=== PATIENT | female | born 1990 | race Caucasian/White ===

== ENCOUNTER 2016-11-07 11:16 | Inpatient (IN) | payer BC, OTHER ==
[2016-11-07] MEDS ORDERED: Terbutaline 1 MG/ML SDV SUBCUT ONE (11:20)
[2016-11-07] MEDS ORDERED: Sodium Chloride 0.9% 2.5 ML Syringe FLUSH PRN (11:20)
[2016-11-07] MEDS ORDERED: Sodium Chloride 0.9% 10 ML Syringe FLUSH PRN (11:20)
[2016-11-07] MEDS: Lactated Ringers 1,000 ML IV SCH ×3 (11:30→12:41)
--- NOTE | 2016-11-07 12:03 | PCM.PREANE ---
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 Respiratory: Reports: no symptoms Cardiovascular: Reports: no symptoms GI: Reports: no symptoms Other: Reports: none - PHYSICAL ASSESSMENT Height: 5 ft 4 in Weight: 73.8 kg ASA Class: 2 Mental Status: alert & oriented x3 Airway Class: Mallampati = 2 Dentition: Reports: normal dentition Thyro-Mental Finger Breadths: 3 Mouth Opening Finger Breadths: 3 ROM/Head Extension: full Respiratory Status: lungs clear to auscultation bilaterally Cardiovascular Status: regular rate & rhythm, normal S1, S2, no murmur, blood pressure WNL - LAB Values: Laboratory Last Values WBC 6.59 K/uL (4.0-11.0) 11/07/16 11:35 RBC 4.04 M/uL (4.30-5.90) L 11/07/16 11:35 Hgb 12.4 g/dL (12.0-16.0) 11/07/16 11:35 Hct 38.5 % (36.0-46.0) 11/07/16 11:35 MCV 95.3 fL (80.0-98.0) 11/07/16 11:35 MCH 30.7 pg (27.0-32.0) 11/07/16 11:35 MCHC 32.2 g/dL (31.0-37.0) 11/07/16 11:35 RDW Std Deviation 48.6 fl (28.0-62.0) 11/07/16 11:35 RDW Coeff of Ceasar 14 % (11.0-15.0) 11/07/16 11:35 Plt Count 225 K/uL (150-400) 11/07/16 11:35 MPV 10.20 fL (7.40-12.00) 11/07/16 11:35 Nucleated RBC % 0.0 /100WBC 11/07/16 11:35 Nucleated RBCs # 0 K/uL 11/07/16 11:35 - ALLERGIES Allergies/Adverse Reactions: Allergies Allergy/AdvReac Type Severity Reaction Status Date / Time No Known Allergies Allergy Verified 11/15/15 16:06 - ANESTHESIA PLAN Free Text/Narrative:: Explained to pt epidural placement; she and understand and wish to proceed at this time. 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: : 3 Para: 0 LMP (Approximate): Musculoskeletal History: Reports: None Neurological History: Reports: None Psychiatric History: Reports: Anxiety Endocrine/Metabolic History: Reports: None Hematologic History: Reports: None Immunologic History: Reports: None Oncologic (Cancer) History: Reports: None Dermatologic History: Reports: None - Infectious Disease History Infectious Disease History: Reports: None - Past Surgical History GI Surgical History: Reports: Colonoscopy - SUBSTANCE USE Smoking Status *Q: Never Smoker Second Hand Smoke Exposure: No Recreational Drug Use History: No - HOME MEDS Home Medications: Home Meds buPROPion HCl [Wellbutrin Xl] 300 mg PO DAILY 11/15/15 [History] - CURRENT (IN HOUSE) MEDS Current Meds: Current Medications Lactated Ringer's (Ringers, Lactated) 1,000 mls @ 500 mls/hr IV .BOLUS NELEA Mineral Oil (Muri-Lube) 30 ml TOP DAILY NEELA Sodium Chloride (Saline Flush) 10 ml FLUSH ASDIRECTED PRN PRN Reason: Keep Vein Open Sodium Chloride (Saline Flush) 2.5 ml FLUSH ASDIRECTED PRN PRN Reason: Keep Vein Open Discontinued Medications Terbutaline Sulfate (Brethine) 0.25 mg SUBCUT ONETIME ONE Stop: 11/07/16 11:21
[2016-11-07] MEDS ORDERED: Bupivacaine 0.5% 10 ML SDV ONE ×2 (12:09→12:45)
[2016-11-07] MEDS ORDERED: fentaNYL 100 MCG/2 ML SDV ONE (12:09)
[2016-11-07] MEDS ORDERED: ePHEDrine 50 MG/ML SDV ONE (12:10)
[2016-11-07] MEDS ORDERED: Mineral Oil 10 ML Bottle TOP SCH ×3 (13:45→16:20)
--- NOTE | 2016-11-07 15:26 | OR ---
SURGEON: Cinthia Miguel M.D. DATE OF PROCEDURE: 11/07/2016 PREOPERATIVE DIAGNOSES: A 37-week intrauterine . Breech presentation. POSTOPERATIVE DIAGNOSES: A 37-week intrauterine . Breech presentation. PROCEDURE: Attempted external cephalic version. UC ARCHITECT: Jamilah Peck MD. ANESTHESIA: Epidural. FINDINGS: Prior to the attempted version, purvi breech presentation, head to maternal right. Following the version, purvi breech presentation, head to maternal left. COMPLICATIONS: None known. DISPOSITION: Stable on continuous monitoring. BRIEF HISTORY: This is a 26-year-old female, G3, P0-0-2-0. She presents at 37 weeks' gestation for external cephalic version. She has been presented with alternatives for breech presentation including a 39-week versus attempted external cephalic version understanding the success rate of 60% to 80% under epidural analgesia, potential for abruption and rupture of membranes, distress, and injury as well as maternal hypotension. Understanding all these risks, she does desire to proceed. DESCRIPTION OF PROCEDURE: Under adequate epidural analgesia, ultrasound was performed with the findings of a deepest pocket of fluid of 3.8 cm. She received terbutaline 0.25 mg subcu. The abdomen was treated with mineral oil. Using upward pressure on the breech and a forward pressure on the head, attempt was made for a forward roll. Immediately, the patient began to feel weak and dizzy. Therefore, this was discontinued and the patient was turned more on the left lateral decubitus position. She recovered quickly, heart tones remained in the 140s. Therefore, this maneuver was again attempted; however, despite adequate pressure, there was minimal change in the position. Therefore, once the fetus and mother had recovered, 3 additional attempts were made to elevate the breech and proceed with a reverse roll pushing the breech towards the maternal right and the head downward. We could accomplish oblique presentation with the head to the maternal left but could not pass beyond transverse despite adequate effort and therefore after 3 attempts in this direction, the procedure was discontinued. Prior to the procedure, heart tones were 140s with moderate variability. Following the procedure, heart tones were 150s with moderate variability. She will be continuously monitored for minimum of 1 hour and observed. If there are normal heart tones without regular contractions, she will be dismissed to home. ARMIDA / SUDHA /[id number]
--- NOTE | 2016-11-07 15:43 | HP ---
DATE OF : 1990 PRIMARY CARE PHYSICIAN: Unknown PCP CHIEF COMPLAINT: A 36-week intrauterine with breech presentation. HISTORY: This is a 26-year-old female, G3, P0-0-2-0. She presents at 37 and 5/7th weeks' gestation for external cephalic version. She has had uncomplicated care. She has a history of anxiety. She is currently on Wellbutrin and doing well. She is blood type A positive, rubella immune. She is known to be group B strep positive. Ultrasound on 10/29/2016 shows purvi breech presentation, spine to the maternal left. Estimated weight 3006 g which is the 73rd percentile. Amniotic fluid volume was normal. There is no nuchal cord identified. There is also no evidence of a uterine anomaly. She is therefore considered to be an appropriate candidate for attempted external cephalic version. This was discussed with the patient including risks which include, but is not limited to the placental abruption with distress, distress from other means onset of labor, and rupture of membranes, all of which would require urgent delivery. Very rare case reports of injury to the fetus from the external version. Alternatively, she can be scheduled at for a delivery at 39 weeks' gestation. She understand the risks of the external version. She does desire to proceed. Bedside ultrasound today confirms persistent breech presentation. PAST MEDICAL HISTORY: Significant for anxiety, irritable bowel syndrome, and fibrocystic breast changes. She has no known drug allergies. SURGICAL HISTORY: [place] [facility] teeth and colonoscopy. SOCIAL HISTORY: She is . Sexually active. She denies use of tobacco, alcohol, or street drugs. 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 CURRENT MEDICATIONS: Wellbutrin XL 300 mg daily, vitamins, hyoscyamine as needed for abdominal pain, Unisom as needed for sleep. REVIEW OF SYSTEMS: Negative besides the obstetrical related problems. PHYSICAL EXAMINATION: VITAL SIGNS: Temperature is 98.8, pulse is 107, blood pressure 113/71. heart tones 140s with moderate variability, no decelerations present, accelerations are present. There are occasional contractions which the patient is unaware of. GENERAL: She is alert and oriented. ABDOMEN: Soft, gravid, nontender. Ultrasound confirms breech presentation. EXTREMITIES: Show trace edema. GENITOURINARY: Vaginal exam; cervix is closed, thick, and the breech is at a minus 1 station. ASSESSMENT AND PLAN: A 37-week intrauterine , purvi breech presentation. Desires to proceed with external cephalic version with risks as discussed above. I reviewed the likelihood of success between 60% and 80%. This can be slightly increased with epidural analgesia. She does desire to proceed with epidural analgesia. She understands that if there is any complication at the time of version, delivery will be performed. If the version is unsuccessful, she will be scheduled for at 39 weeks' gestation. ARMIDA HALEY /[id number]
--- NOTE | 2016-11-07 16:58 | PCM48HPAN ---
Post Anesthesia Note - EVALUATION WITHIN 48HRS OF ANESTHETIC Vital Signs in Normal Range: Yes Patient Participated in Evaluation: Yes Respiratory Function Stable: Yes Airway Patent: Yes Cardiovascular Function Stable: Yes Hydration Status Stable: Yes Pain Control Satisfactory: Yes Nausea and Vomiting Control Satisfactory: Yes Mental Status Recovered: Yes - COMMENTS/OBSERVATIONS Free Text/Narrative:: Full return of sensation, pt is ambulating without difficulty.
[2016-11-08] MEDS ORDERED: Mineral Oil 10 ML Bottle TOP SCH (09:00)
== END 2016-11-07 20:40 | disposition home or self-care (01) | DRG 566 ==
LOC: MW.OB 11:16 → UNDOADMIN 11:16 → MW.OB 11:24 → UNDODISIN 18:20
PROVIDERS: ADMIT Obstetrics & Gynecology; ATTEND Obstetrics & Gynecology
PROC: 10S0XZZ Reposition Products of Conception, External Approach (ICD-10-PCS; principal; 2016-11-07)
DX: O32.1XX0 Maternal care for breech presentation, not applicable or unspecified (principal); Z3A.37 37 weeks gestation of pregnancy
CPT/HCPCS: 01958; 36415; 59025; 59412; 76815; 85027; 86850; 86900; 86901; J3010; J3105; J7120

== ENCOUNTER 2016-11-08 07:02 | Outpatient (CLI) | payer BC, OTHER ==
--- NOTE | 2016-11-10 20:27 | US ---
EXAM DATE: 11/08/16 PATIENT'S AGE: 26 Patient: ALEXIS GRAJEDA Facility: [place], [place] Site . Site : 1990 Study: US OB Pelvis [id number]/11/2017 11:31:17 AM Ordering Physician: Lamont Vicente Final Report: INDICATION: Vaginal spotting 1 day post inversion. TECHNIQUE: Limited transabdominal two-dimensional grayscale ultrasound examination. COMPARISON: None FINDINGS: There is a living fetus. The biophysical profile score is 8/8. The heart rate is measured at 141 beats per minute and the rhythm appears regular. The amniotic fluid volume is within normal limits with BEVERLEY of 14 cm. IMPRESSION: Living fetus with a biophysical profile score of 8/8. Dictated by Felipe Diaz MD @ Nov 08 2016 12:10PM (Electronic Signature) Report Signed by Proxy and Original Signed Document filed in the Medical Record. [place]
== END 2016-11-08 12:20 | disposition home or self-care (01) ==
LOC: MW.OBCHECK 07:02 → MW.OB 07:03 → MW.OBCHECK 12:20
PROVIDERS: ATTEND Obstetrics & Gynecology
DX: O47.1 False labor at or after 37 completed weeks of gestation (principal)
CPT/HCPCS: 59025; 76819; 76819-26

== ENCOUNTER 2016-11-10 14:36 | Inpatient (IN) | payer BC, OTHER ==
[2016-11-10] MEDS ORDERED: Sodium Chloride 0.9% 10 ML Syringe FLUSH PRN (14:49)
[2016-11-10] MEDS ORDERED: Sodium Chloride 0.9% 2.5 ML Syringe FLUSH PRN (14:49)
[2016-11-10] MEDS ORDERED: Citric Acid/Sodium Citrate Solution 30 ML Cup PO SCH (15:00)
[2016-11-10] MEDS: Lactated Ringers 1,000 ML IV SCH ×3 (15:10→18:37)
[2016-11-10] MEDS ORDERED: Oxytocin 10 Units/1 ML SDV ONE ×2 (15:37→16:41)
[2016-11-10] MEDS ORDERED: Morphine PF 10 MG/10 ML SDV ONE (15:37)
[2016-11-10] MEDS ORDERED: Ondansetron 4 MG/2 ML SDV ONE (15:37)
--- NOTE | 2016-11-10 15:55 | PCM.PREANE ---
Preanesthetic Assessment - ANESTHESIA/TRANSFUSION/FAMILY HX Anesthesia/Transfusion History: Prior Anesthesia Family History of Anesthesia Reaction: No - PHYSICAL ASSESSMENT Height: 5 ft 4.5 in Weight: 176 lb - LAB Values: Laboratory Last Values WBC 8.68 K/uL (4.0-11.0) 11/10/16 15:00 RBC 4.40 M/uL (4.30-5.90) 11/10/16 15:00 Hgb 13.6 g/dL (12.0-16.0) 11/10/16 15:00 Hct 41.7 % (36.0-46.0) 11/10/16 15:00 MCV 94.8 fL (80.0-98.0) 11/10/16 15:00 MCH 30.9 pg (27.0-32.0) 11/10/16 15:00 MCHC 32.6 g/dL (31.0-37.0) 11/10/16 15:00 RDW Std Deviation 48.8 fl (28.0-62.0) 11/10/16 15:00 RDW Coeff of Ceasar 14 % (11.0-15.0) 11/10/16 15:00 Plt Count 219 K/uL (150-400) 11/10/16 15:00 MPV 10.10 fL (7.40-12.00) 11/10/16 15:00 Nucleated RBC % 0.0 /100WBC 11/10/16 15:00 Nucleated RBCs # 0 K/uL 11/10/16 15:00 - ALLERGIES Allergies/Adverse Reactions: Allergies Allergy/AdvReac Type Severity Reaction Status Date / Time No Known Allergies Allergy Verified 11/15/15 16:06 PreAnesthesia Questionnaire - Past Health History Medical/Surgical History: Denies Medical/Surgical History HEENT History: Reports: None Cardiovascular History: Reports: None Respiratory History: Reports: None Gastrointestinal History: Reports: Irritable bowel syndrome Genitourinary History: Reports: None LICENSE 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: 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: Musculoskeletal History: Reports: None Neurological History: Reports: None Psychiatric History: Reports: Anxiety Endocrine/Metabolic History: Reports: None Hematologic History: Reports: None Immunologic History: Reports: None Oncologic (Cancer) History: Reports: None Dermatologic History: Reports: None - Infectious Disease History Infectious Disease History: Reports: None - Past Surgical History HEENT Surgical History: Reports: Oral surgery GI Surgical History: Reports: Colonoscopy - SUBSTANCE USE Smoking Status *Q: Never Smoker Second Hand Smoke Exposure: No Recreational Drug Use History: No - HOME MEDS Home Medications: Home Meds buPROPion HCl [Wellbutrin Xl] 300 mg PO DAILY 11/15/15 [History] - CURRENT (IN HOUSE) MEDS Current Meds: Current Medications Citric Acid/Sodium Citrate (Bicitra Solution) 30 ml PO .ONCE NEELA Lactated Ringer's (Ringers, Lactated) 1,000 mls @ 500 mls/hr IV .BOLUS NEELA Sodium Chloride (Saline Flush) 10 ml FLUSH ASDIRECTED PRN PRN Reason: Keep Vein Open Sodium Chloride (Saline Flush) 2.5 ml FLUSH ASDIRECTED PRN PRN Reason: Keep Vein Open Discontinued Medications Morphine Sulfate (Duramorph Pf) Confirm Administered Dose 10 mg .ROUTE .STK-MED ONE Stop: 11/10/16 15:38 Ondansetron HCl (Zofran) Confirm Administered Dose 4 mg .ROUTE .STK-MED ONE Stop: 11/10/16 15:38 Oxytocin (Pitocin) Confirm Administered Dose 20 unit .ROUTE .STK-MED ONE Stop: 11/10/16 15:38
[2016-11-10] MEDS ORDERED: Phenylephrine/Normal Saline 100 MCG/ML 10 ML Syringe ONE (16:12)
[2016-11-10] MEDS ORDERED: ePHEDrine 50 MG/ML SDV ONE (16:25)
[2016-11-10] MEDS ORDERED: fentaNYL 100 MCG/2 ML SDV ONE (16:48)
--- NOTE | 2016-11-10 16:55 | PCM.PREANE ---
Preanesthetic Assessment - PMH PMH: primip, breech, failed version last week, active labor, KNDA, NPO 4 hours. 1 liter fluid bolus on L&D, 2nd liter running. MP1, good cervical mobility. Plan spinal with fentanyl and duramorph. Consented, questions answered. 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 Respiratory: Reports: no symptoms Cardiovascular: Reports: no symptoms GI: Reports: no symptoms Other: Reports: none - PHYSICAL ASSESSMENT Height: 1.64 m Weight: 79.832 kg ASA Class: 2E Mental Status: alert & oriented x3 Airway Class: Mallampati = 1 Dentition: Reports: normal dentition ROM/Head Extension: full Respiratory Status: lungs clear to auscultation bilaterally Cardiovascular Status: regular rate & rhythm, normal S1, S2, no murmur - LAB Values: Laboratory Last Values WBC 8.68 K/uL (4.0-11.0) 11/10/16 15:00 RBC 4.40 M/uL (4.30-5.90) 11/10/16 15:00 Hgb 13.6 g/dL (12.0-16.0) 11/10/16 15:00 Hct 41.7 % (36.0-46.0) 11/10/16 15:00 MCV 94.8 fL (80.0-98.0) 11/10/16 15:00 MCH 30.9 pg (27.0-32.0) 11/10/16 15:00 MCHC 32.6 g/dL (31.0-37.0) 11/10/16 15:00 RDW Std Deviation 48.8 fl (28.0-62.0) 11/10/16 15:00 RDW Coeff of Ceasar 14 % (11.0-15.0) 11/10/16 15:00 Plt Count 219 K/uL (150-400) 11/10/16 15:00 MPV 10.10 fL (7.40-12.00) 11/10/16 15:00 Nucleated RBC % 0.0 /100WBC 11/10/16 15:00 Nucleated RBCs # 0 K/uL 11/10/16 15:00 Blood Type A POSITIVE 11/10/16 15:00 Antibody Screen NEGATIVE 11/10/16 15:00 - ALLERGIES Allergies/Adverse Reactions: Allergies Allergy/AdvReac Type Severity Reaction Status Date / Time No Known Allergies Allergy Verified 11/15/15 16:06 - BLOOD Blood Available: No - ANESTHESIA PLAN Preop Beta Elizabeth: No Anesthesia Type Planned: spinal - ACKNOWLEDGEMENTS Pt an appropriate candidate for the planned anesthesia: Yes Alternatives and risks of anesthesia discussed w pt/guardian: Yes Pt/Guardian understands and agree with anesthesia plan: Yes PreAnesthesia Questionnaire - Past Health History Medical/Surgical History: Denies Medical/Surgical History HEENT History: Reports: None Cardiovascular History: Reports: None Respiratory History: Reports: None Gastrointestinal History: Reports: Irritable bowel syndrome Genitourinary History: Reports: None 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: Musculoskeletal History: Reports: None Neurological History: Reports: None Psychiatric History: Reports: Anxiety Endocrine/Metabolic History: Reports: None Hematologic History: Reports: None Immunologic History: Reports: None Oncologic (Cancer) History: Reports: None Dermatologic History: Reports: None - Infectious Disease History Infectious Disease History: Reports: None - Past Surgical History HEENT Surgical History: Reports: Oral surgery GI Surgical History: Reports: Colonoscopy - SUBSTANCE USE Smoking Status *Q: Never Smoker Second Hand Smoke Exposure: No Recreational Drug Use History: No - HOME MEDS Home Medications: Home Meds buPROPion HCl [Wellbutrin Xl] 300 mg PO DAILY 11/15/15 [History] - CURRENT (IN HOUSE) MEDS Current Meds: Current Medications Citric Acid/Sodium Citrate (Bicitra Solution) 30 ml PO .ONCE NEELA Lactated Ringer's (Ringers, Lactated) 1,000 mls @ 500 mls/hr IV .BOLUS NEELA Last Admin: 11/10/16 15:50 Dose: 500 mls/hr Sodium Chloride (Saline Flush) 10 ml FLUSH ASDIRECTED PRN PRN Reason: Keep Vein Open Sodium Chloride (Saline Flush) 2.5 ml FLUSH ASDIRECTED PRN PRN Reason: Keep Vein Open Discontinued Medications Ephedrine Sulfate (Ephedrine Sulfate) Confirm Administered Dose 50 mg .ROUTE .STK-MED ONE Stop: 11/10/16 16:26 Morphine Sulfate (Duramorph Pf) Confirm Administered Dose 10 mg .ROUTE .STK-MED ONE Stop: 11/10/16 15:38 Ondansetron HCl (Zofran) Confirm Administered Dose 4 mg .ROUTE .STK-MED ONE Stop: 11/10/16 15:38 Oxytocin (Pitocin) Confirm Administered Dose 20 unit .ROUTE .STK-MED ONE Stop: 11/10/16 15:38 Oxytocin (Pitocin) Confirm Administered Dose 10 unit .ROUTE .STK-MED ONE Stop: 11/10/16 16:42 Phenylephrine HCl (Phenylephrine In Ns 100 Mcg/Ml) Confirm Administered Dose 1 mg .ROUTE .[facility]-MED ONE Stop: 11/10/16 16:13
[2016-11-10] MEDS ORDERED: Nalbuphine 10 MG/1 ML Vial IVPUSH PRN (16:56)
[2016-11-10] MEDS ORDERED: Naloxone 0.4 MG/ML Syringe IVPUSH PRN (16:56)
[2016-11-10] MEDS ORDERED: fentaNYL 100 MCG/2 ML SDV IVPUSH PRN (16:56)
[2016-11-10] MEDS ORDERED: Acetaminophen/oxyCODONE 325-5 MG Tab PO PRN (16:56)
[2016-11-10] MEDS ORDERED: Bisacodyl 10 MG Supp RECTAL PRN (17:18)
[2016-11-10] MEDS ORDERED: diphenhydrAMINE 50 MG/ML SDV IVPUSH PRN (17:18)
[2016-11-10] MEDS ORDERED: Ondansetron 4 MG/2 ML SDV IV PRN (17:18)
[2016-11-10] MEDS ORDERED: Lanolin 100% Cream 7 GM Tube TOP PRN (17:18)
[2016-11-10] MEDS: Ketorolac 30 MG/ML SDV IVPUSH SCH ×2 (17:39→23:40)
--- NOTE | 2016-11-10 18:04 | PCM.POSTAN ---
POST ANESTHESIA ASSESSMENT - MENTAL STATUS Mental Status: alert, oriented - RESPIRATORY Respiratory Status: respiratory rate WNL, airway patent, O2 saturation stable - CARDIOVASCULAR CV Status: pulse rate WNL, blood pressure stable - GASTROINTESTINAL GI Status: no symptoms - PAIN Pain Score: 0 - POST OP HYDRATION Hydration Status: adequate & stable - OBSERVATIONS Free Text/Narrative:: Pt . VSS. No apparent anesthesia complications.
--- NOTE | 2016-11-10 22:52 | OR ---
SURGEON: Sanjana Brown DATE OF PROCEDURE: 11/10/2016 BRIEF PRE-DELIVERY HISTORY: This is a 26-year-old G3, P0, presented to Labor and Delivery with complaints of regular painful uterine contractions. The patient has had complicated by a purvi breech presentation, for which patient failed version a few days earlier. When patient was examined, she was found to be 5 to 6 cm dilated, 100% effaced, and -3 station. Ultrasound was completed by myself. The vertex was noted to be in the maternal left upper quadrant. The patient was quickly consented for a primary low transverse section and was apprised of the risks of being bleeding, infection, poor wound healing, possible damage to the bowel or the bladder, ureters, blood vessels, nerves or any other adjacent structures in the pelvis, also risk of spinal anesthesia in addition to risk of thromboembolic disease. Knowing all of the above, the patient was ready to move forward with primary low transverse section. The patient was transferred to the OR and was moved to the operating room bed. Prior to placement of spinal anesthesia, Venodynes were in place and active. The patient underwent spinal anesthesia without complication and was quickly lied down. heart tones were obtained. Patient's pubic hairs were clipped and Delcid was placed. The patient was then prepped and draped in normal sterile fashion. PREOPERATIVE DIAGNOSES: 1. Intrauterine at 38 weeks and 1 day. 2. Active labor. 3. Purvi breech presentation. 4. GBS positive. POSTOPERATIVE DIAGNOSES: 1. Intrauterine at 38 weeks and 1 day. 2. Active labor. 3. Purvi breech presentation. 4. GBS positive. 5. Delivered via primary low transverse section. PROCEDURE PERFORMED: Primary low transverse section. ANESTHESIA: Spinal. ESTIMATED BLOOD LOSS: Approximately 600 mL. URINE OUTPUT: 100 mL of clear urine at the end of procedure. IV FLUIDS: 2700 mL of crystalloid. FINDINGS: Viable female infant in purvi breech presentation with score of 9 and 9 at 1 and 5 minutes respectively and weight of 3200 g. Normal intact placenta with 3-vessel cord. Normal uterus, ovaries, and tubes bilaterally. SPECIMEN REMOVED: Placenta for disposal. CONDITION: Postoperatively, the patient and tolerated the procedure well. COMPLICATIONS: None known. DESCRIPTION OF PROCEDURE: After a time-out being held in the OR to note appropriate patient, appropriate procedure, appropriate position and the fact the patient received 2 g IV Ancef prior to start of procedure. The patient was tested with Allis clamps and a spinal anesthesia was found to be adequate. A Pfannenstiel incision was made approximately 2 cm above the pubic bone for an incision approximately 8 cm. After incising the skin, the incision was carried down to the underlying layer of fascia that was incised in the midline and extended laterally with the Bovie. The superior aspect of the fascial incision was then grasped with Leidy clamps, dissected off bluntly then sharply with the Bovie. Attention then was turned to the inferior aspect of the incision which in a similar fashion was tented up, and the rectus muscles were dissected off bluntly then sharply with the Bovie. The diastasis recti was noted and the linea was grasped in the midline on either side with Jazmin clamps. Carefully incision was made in the linea with the Bovie. Once the peritoneum was noted, the index digit was used to make a defect in the peritoneum and then with lateral stretching, the peritoneal access was increased. The Michael self-retaining retractor was placed in the patient's abdomen and set. The vesicouterine peritoneum was identified, tented up, and entered sharply with the Metzenbaum scissors. The bladder flap was created digitally. A new scalpel blade was used to make a low transverse incision in the lower uterine segment. The incision was then extended in an anterior- posterior direction as to prevent excess lateral shearing out to the uterine vessels. Amniotic fluid was noted to be clear. Upon hysterotomy, the breech was located and the buttocks was brought through the hysterotomy incision. The was delivered to the chest and the arms were reduced first, the right by sweeping the arm across the chest. The vertex was then flexed and the head was brought through the hysterotomy incision. The infant was bulb suctioned at delivery. Cord was doubly clamped, infant was passed off to the waiting pediatric dietician. Cord blood was collected and sent for analysis. IV Pitocin was given as uterotonic to prevent excessive maternal blood loss. The placenta was manually removed and all clots and debris were removed from the uterus. The gutters were cleared of all clots and debris. Allis clamps were placed on either side of the hysterotomy incision and a Dyer was placed on the inferior aspect of the hysterotomy incision. 0 Vicryl suture with the CTX needle was used to close the first layer of the uterus in a running, locked fashion. The second layer of same suture was used to complete the imbricating layer. Hemostasis was noted to be excellent. The uterus, ovaries, and tubes were inspected bilaterally and noted to be normal. The Michael self-retaining retractor was removed from the patient's abdomen. The hysterotomy incision was reinspected and hemostasis was noted be excellent. The peritoneum and rectus muscles were then closed in a running mattress suture with 0 Vicryl suture. The fascia was closed with 0 Vicryl suture in a running fashion. The adipose tissue was reapproximated with 3-0 plain gut suture. The skin was reapproximated with 3-0 Prolene suture on the Archie needle. The remainder of the suture was tied and affixed to the patient's anterior abdomen. Mastisol and Steri-Strips were placed. Telfa and a pressure dressing was placed. Afterwards, the patient's uterus was expressed and patient was cleansed. Pads were changed and patient was moved to her bed. The patient went to recovery in awake and stable condition with binder in place. The patient tolerated the procedure well. Sponge, lap, needle, and instrument counts were correct on each occasion when counted. TERI / SUDHA /[id number] [place]
[2016-11-10] MEDS: Docusate Sodium 100 MG Cap PO SCH (23:40)
[2016-11-11] MEDS: Lactated Ringers 1,000 ML IV SCH (02:46)
[2016-11-11] MEDS: Ketorolac 30 MG/ML SDV IVPUSH SCH ×3 (05:30→18:10)
--- NOTE | 2016-11-11 07:34 | PCM48HPAN ---
Post Anesthesia Note - EVALUATION WITHIN 48HRS OF ANESTHETIC Vital Signs in Normal Range: Yes Patient Participated in Evaluation: Yes Respiratory Function Stable: Yes Airway Patent: Yes Cardiovascular Function Stable: Yes Hydration Status Stable: Yes Pain Control Satisfactory: Yes Nausea and Vomiting Control Satisfactory: Yes Mental Status Recovered: Yes
[2016-11-11] MEDS: Docusate Sodium 100 MG Cap PO SCH ×2 (08:01→20:58)
[2016-11-12] MEDS: Ibuprofen 800 MG Tab PO PRN ×3 (01:06→18:12)
[2016-11-12] MEDS: Acetaminophen/oxyCODONE 325-5 MG Tab PO PRN ×4 (06:40→20:15)
--- NOTE | 2016-11-12 08:04 | PCM.PNPP ---
- General Info Date of Service: 11/11/16 Functional Status: Reports: pain controlled, tolerating diet, ambulating, urinating - Review of Systems General: Reports: No Symptoms HEENT: Reports: no symptoms Pulmonary: Reports: no symptoms Cardiovascular: Reports: No Symptoms Gastrointestinal: Reports: No symptoms Genitourinary: Reports: no symptoms Musculoskeletal: Reports: no symptoms Skin: Reports: no symptoms Neurological: Reports: No Symptoms Psychiatric: Reports: no symptoms - Patient Data Vital Signs - most recent: Last Vital Signs Temp 36.7 C 11/12/16 03:00 Pulse 84 11/12/16 03:00 Resp 16 11/12/16 03:00 BP 100/63 11/12/16 03:00 Pulse Ox 95 11/12/16 03:00 Weight - most recent: 79.832 kg Med Orders - Current: Current Medications Bisacodyl (Dulcolax) 10 mg RECTAL .ONCE PRN PRN Reason: Constipation Citric Acid/Sodium Citrate (Bicitra Solution) 30 ml PO .ONCE NEELA Diphenhydramine HCl (Benadryl) 25 mg IVPUSH Q6H PRN PRN Reason: Itching or Nausea Docusate Sodium (Colace) 100 mg PO BID [facility] Last Admin: 11/11/16 20:58 Dose: 100 mg Emollient Ointment (Lansinoh Hpa) 0 gm TOP ASDIRECTED PRN PRN Reason: Sore Nipples Last Admin: 11/11/16 12:32 Dose: 0.25 oz Lactated Ringer's (Ringers, Lactated) 1,000 mls @ 500 mls/hr IV .BOLUS [facility] Last Admin: 11/10/16 15:50 Dose: 500 mls/hr Lactated Ringer's (Ringers, Lactated) 1,000 mls @ 125 mls/hr IV ASDIRECTED [facility] Last Admin: 11/11/16 02:46 Dose: 125 mls/hr Ibuprofen (Motrin) 800 mg PO Q8H PRN PRN Reason: mild pain or fever Last Admin: 11/12/16 01:06 Dose: 800 mg Ondansetron HCl (Zofran) 4 mg IV Q4H PRN PRN Reason: Nausea/Vomiting Oxycodone/Acetaminophen (Percocet 325-5 Mg) 2 tab PO ONETIME PRN PRN Reason: Pain (moderate 4-6) Oxycodone/Acetaminophen (Percocet 325-5 Mg) 1 tab PO Q4H PRN PRN Reason: Pain (moderate 4-6) Last Admin: 11/12/16 06:40 Dose: 1 tab Oxycodone/Acetaminophen (Percocet 325-5 Mg) 2 tab PO Q4H PRN PRN Reason: Pain (moderate 4-6) Sodium Chloride (Saline Flush) 10 ml FLUSH ASDIRECTED PRN PRN Reason: Keep Vein Open Sodium Chloride (Saline Flush) 2.5 ml FLUSH ASDIRECTED PRN PRN Reason: Keep Vein Open Discontinued Medications Ephedrine Sulfate (Ephedrine Sulfate) Confirm Administered Dose 50 mg .ROUTE .STK-MED ONE Stop: 11/10/16 16:26 Fentanyl (Sublimaze) Confirm Administered Dose 100 mcg .ROUTE .STK-MED ONE Stop: 11/10/16 16:49 Fentanyl (Sublimaze) 50 mcg IVPUSH Q5M PRN PRN Reason: Pain (severe 7-10) Stop: 11/11/16 16:56 Ketorolac Tromethamine (Toradol) 30 mg IVPUSH Q6H NEELA Stop: 11/11/16 17:31 Last Admin: 11/11/16 18:10 Dose: 30 mg Morphine Sulfate (Duramorph Pf) Confirm Administered Dose 10 mg .ROUTE .STK-MED ONE Stop: 11/10/16 15:38 Nalbuphine HCl (Nubain) 5 mg IVPUSH Q3H PRN PRN Reason: Pruritis Stop: 11/11/16 16:58 Naloxone HCl (Narcan) 0.1 mg IVPUSH ONETIME PRN PRN Reason: Oversedation Stop: 11/11/16 16:58 Ondansetron HCl (Zofran) Confirm Administered Dose 4 mg .ROUTE .STK-MED ONE Stop: 11/10/16 15:38 Oxytocin (Pitocin) Confirm Administered Dose 20 unit .ROUTE .STK-MED ONE Stop: 11/10/16 15:38 Oxytocin (Pitocin) Confirm Administered Dose 10 unit .ROUTE .STK-MED ONE Stop: 11/10/16 16:42 Phenylephrine HCl (Phenylephrine In Ns 100 Mcg/Ml) Confirm Administered Dose 1 mg .ROUTE .STK-MED ONE Stop: 11/10/16 16:13 - Interaction Disposition, : [place] in Room with Family Infant Interaction: Holding Infant Feeding: Breastfed Infant; Nursed Well Support Person: - Recovery Exam Fundal Tone: Firm Fundal Level: At Umbilicus Fundal Placement: Midline Lochia Amount: Scant Lochia Color: Brownish Perineum Description: Intact, Minimal Bruising/Swelling Episiotomy/Laceration: None Bladder Status: Nonpalpable, Voiding Urinary Elimination: Voided - Exam General: alert, oriented HEENT: Pupils equal Neck: supple Lungs: Normal respiratory effort Abdomen: bowel sounds present, soft, no tenderness, no distension Extremities: no edema Skin: warm, dry, intact Wound/Incisions: dressing dry and intact Neurological: no new focal deficit Psy/Mental Status: alert, normal affect, normal mood - Problem List & Annotations (1) Breech, purvi SNOMED Code(s): 66806218 Code(s): O32.1XX0 - MATERNAL CARE FOR BREECH PRESENTATION, UNSP Status: Acute Current Visit: Yes (2) delivery delivered SNOMED Code(s): 430807860 Code(s): O82 - ENCOUNTER FOR DELIVERY WITHOUT INDICATION Status: Acute Current Visit: Yes - Problem List Review Problem List Initiated/Reviewed/Updated: Yes - Assessment Assessment:: POD1 after primary for breech presentation, pain well controlled. Minimal lochia. Baby has latched well. - Plan Plan:: Continue postop care, continue support.
--- NOTE | 2016-11-12 08:19 | PCM.PNPP ---
- General Info Date of Service: 11/12/16 Functional Status: Reports: pain controlled, tolerating diet, ambulating, urinating - Review of Systems General: Reports: No Symptoms HEENT: Reports: no symptoms Pulmonary: Reports: no symptoms Cardiovascular: Reports: No Symptoms Gastrointestinal: Reports: No symptoms Genitourinary: Reports: no symptoms Musculoskeletal: Reports: no symptoms Skin: Reports: no symptoms Neurological: Reports: No Symptoms Psychiatric: Reports: no symptoms - Patient Data Vital Signs - most recent: Last Vital Signs Temp 36.7 C 11/12/16 03:00 Pulse 84 11/12/16 03:00 Resp 16 11/12/16 03:00 BP 100/63 11/12/16 03:00 Pulse Ox 95 11/12/16 03:00 Weight - most recent: 79.832 kg Med Orders - Current: Current Medications Bisacodyl (Dulcolax) 10 mg RECTAL .ONCE PRN PRN Reason: Constipation Citric Acid/Sodium Citrate (Bicitra Solution) 30 ml PO .ONCE NEELA Diphenhydramine HCl (Benadryl) 25 mg IVPUSH Q6H PRN PRN Reason: Itching or Nausea Docusate Sodium (Colace) 100 mg PO BID [facility] Last Admin: 11/11/16 20:58 Dose: 100 mg Emollient Ointment (Lansinoh Hpa) 0 gm TOP ASDIRECTED PRN PRN Reason: Sore Nipples Last Admin: 11/11/16 12:32 Dose: 0.25 oz Lactated Ringer's (Ringers, Lactated) 1,000 mls @ 500 mls/hr IV .BOLUS [facility] Last Admin: 11/10/16 15:50 Dose: 500 mls/hr Lactated Ringer's (Ringers, Lactated) 1,000 mls @ 125 mls/hr IV ASDIRECTED [facility] Last Admin: 11/11/16 02:46 Dose: 125 mls/hr Ibuprofen (Motrin) 800 mg PO Q8H PRN PRN Reason: mild pain or fever Last Admin: 11/12/16 01:06 Dose: 800 mg Ondansetron HCl (Zofran) 4 mg IV Q4H PRN PRN Reason: Nausea/Vomiting Oxycodone/Acetaminophen (Percocet 325-5 Mg) 2 tab PO ONETIME PRN PRN Reason: Pain (moderate 4-6) Oxycodone/Acetaminophen (Percocet 325-5 Mg) 1 tab PO Q4H PRN PRN Reason: Pain (moderate 4-6) Last Admin: 11/12/16 06:40 Dose: 1 tab Oxycodone/Acetaminophen (Percocet 325-5 Mg) 2 tab PO Q4H PRN PRN Reason: Pain (moderate 4-6) Sodium Chloride (Saline Flush) 10 ml FLUSH ASDIRECTED PRN PRN Reason: Keep Vein Open Sodium Chloride (Saline Flush) 2.5 ml FLUSH ASDIRECTED PRN PRN Reason: Keep Vein Open Discontinued Medications Ephedrine Sulfate (Ephedrine Sulfate) Confirm Administered Dose 50 mg .ROUTE .STK-MED ONE Stop: 11/10/16 16:26 Fentanyl (Sublimaze) Confirm Administered Dose 100 mcg .ROUTE .STK-MED ONE Stop: 11/10/16 16:49 Fentanyl (Sublimaze) 50 mcg IVPUSH Q5M PRN PRN Reason: Pain (severe 7-10) Stop: 11/11/16 16:56 Ketorolac Tromethamine (Toradol) 30 mg IVPUSH Q6H NEELA Stop: 11/11/16 17:31 Last Admin: 11/11/16 18:10 Dose: 30 mg Morphine Sulfate (Duramorph Pf) Confirm Administered Dose 10 mg .ROUTE .STK-MED ONE Stop: 11/10/16 15:38 Nalbuphine HCl (Nubain) 5 mg IVPUSH Q3H PRN PRN Reason: Pruritis Stop: 11/11/16 16:58 Naloxone HCl (Narcan) 0.1 mg IVPUSH ONETIME PRN PRN Reason: Oversedation Stop: 11/11/16 16:58 Ondansetron HCl (Zofran) Confirm Administered Dose 4 mg .ROUTE .STK-MED ONE Stop: 11/10/16 15:38 Oxytocin (Pitocin) Confirm Administered Dose 20 unit .ROUTE .STK-MED ONE Stop: 11/10/16 15:38 Oxytocin (Pitocin) Confirm Administered Dose 10 unit .ROUTE .STK-MED ONE Stop: 11/10/16 16:42 Phenylephrine HCl (Phenylephrine In Ns 100 Mcg/Ml) Confirm Administered Dose 1 mg .ROUTE .STK-MED ONE Stop: 11/10/16 16:13 - Interaction Disposition, : [place] in Room with Family Infant Interaction: Holding Infant Feeding: Breastfed Infant; Nursed Well Support Person: - Recovery Exam Fundal Tone: Firm Fundal Level: At Umbilicus Fundal Placement: Midline Lochia Amount: Scant Lochia Color: Brownish Perineum Description: Intact, Minimal Bruising/Swelling Episiotomy/Laceration: None Bladder Status: Nonpalpable, Voiding Urinary Elimination: Voided - Exam General: alert, oriented HEENT: Pupils equal Neck: supple Lungs: Clear to auscultation, Normal respiratory effort Cardiovascular: Regular Rate, Regular Rhythm Abdomen: bowel sounds present, soft, no tenderness, no distension Extremities: no edema Skin: warm, dry, intact Wound/Incisions: healing well Neurological: no new focal deficit Psy/Mental Status: alert, normal affect, normal mood - Problem List & Annotations (1) Breech, purvi SNOMED Code(s): 41162664 Code(s): O32.1XX0 - MATERNAL CARE FOR BREECH PRESENTATION, UNSP Status: Acute Current Visit: Yes (2) delivery delivered SNOMED Code(s): 033259099 Code(s): O82 - ENCOUNTER FOR DELIVERY WITHOUT INDICATION Status: Acute Current Visit: Yes - Problem List Review Problem List Initiated/Reviewed/Updated: Yes - Assessment Assessment:: POD2 after primary for breech presentation, pain well controlled. Working on , no complaints, would like to be discharged later today. - Plan Plan:: Dismiss to home later today. Discharge instructions reviewed.
[2016-11-12] MEDS: Docusate Sodium 100 MG Cap PO SCH ×2 (09:09→20:16)
[2016-11-13] MEDS: Acetaminophen/oxyCODONE 325-5 MG Tab PO PRN ×3 (00:21→09:17)
[2016-11-13] MEDS: Ibuprofen 800 MG Tab PO PRN (04:28)
[2016-11-13] MEDS: Docusate Sodium 100 MG Cap PO SCH (09:17)
--- NOTE | 2016-11-13 09:47 | PCM.PNPP ---
- General Info Functional Status: Reports: pain controlled, tolerating diet, ambulating, urinating - Review of Systems General: Reports: No Symptoms HEENT: Reports: no symptoms Pulmonary: Reports: no symptoms Cardiovascular: Reports: No Symptoms Gastrointestinal: Reports: No symptoms Genitourinary: Reports: no symptoms Musculoskeletal: Reports: no symptoms Skin: Reports: no symptoms Neurological: Reports: No Symptoms Psychiatric: Reports: no symptoms - Patient Data Vital Signs - most recent: Last Vital Signs Temp 37.1 C 11/13/16 03:52 Pulse 78 11/13/16 03:52 Resp 14 11/13/16 03:52 BP 101/65 11/13/16 03:52 Pulse Ox 97 11/13/16 03:52 Weight - most recent: 79.832 kg Med Orders - Current: Current Medications Bisacodyl (Dulcolax) 10 mg RECTAL .ONCE PRN PRN Reason: Constipation Citric Acid/Sodium Citrate (Bicitra Solution) 30 ml PO .ONCE NEELA Diphenhydramine HCl (Benadryl) 25 mg IVPUSH Q6H PRN PRN Reason: Itching or Nausea Docusate Sodium (Colace) 100 mg PO BID [facility] Last Admin: 11/13/16 09:17 Dose: 100 mg Emollient Ointment (Lansinoh Hpa) 0 gm TOP ASDIRECTED PRN PRN Reason: Sore Nipples Last Admin: 11/11/16 12:32 Dose: 0.25 oz Lactated Ringer's (Ringers, Lactated) 1,000 mls @ 500 mls/hr IV .BOLUS [facility] Last Admin: 11/10/16 15:50 Dose: 500 mls/hr Lactated Ringer's (Ringers, Lactated) 1,000 mls @ 125 mls/hr IV ASDIRECTED [facility] Last Admin: 11/11/16 02:46 Dose: 125 mls/hr Ibuprofen (Motrin) 800 mg PO Q8H PRN PRN Reason: mild pain or fever Last Admin: 11/13/16 04:28 Dose: 800 mg Ondansetron HCl (Zofran) 4 mg IV Q4H PRN PRN Reason: Nausea/Vomiting Oxycodone/Acetaminophen (Percocet 325-5 Mg) 2 tab PO ONETIME PRN PRN Reason: Pain (moderate 4-6) Oxycodone/Acetaminophen (Percocet 325-5 Mg) 1 tab PO Q4H PRN PRN Reason: Pain (moderate 4-6) Last Admin: 11/13/16 09:17 Dose: 1 tab Oxycodone/Acetaminophen (Percocet 325-5 Mg) 2 tab PO Q4H PRN PRN Reason: Pain (moderate 4-6) Last Admin: 11/12/16 15:20 Dose: 2 tab Sodium Chloride (Saline Flush) 10 ml FLUSH ASDIRECTED PRN PRN Reason: Keep Vein Open Sodium Chloride (Saline Flush) 2.5 ml FLUSH ASDIRECTED PRN PRN Reason: Keep Vein Open Discontinued Medications Ephedrine Sulfate (Ephedrine Sulfate) Confirm Administered Dose 50 mg .ROUTE .STK-MED ONE Stop: 11/10/16 16:26 Fentanyl (Sublimaze) Confirm Administered Dose 100 mcg .ROUTE .STK-MED ONE Stop: 11/10/16 16:49 Fentanyl (Sublimaze) 50 mcg IVPUSH Q5M PRN PRN Reason: Pain (severe 7-10) Stop: 11/11/16 16:56 Ketorolac Tromethamine (Toradol) 30 mg IVPUSH Q6H NEELA Stop: 11/11/16 17:31 Last Admin: 11/11/16 18:10 Dose: 30 mg Morphine Sulfate (Duramorph Pf) Confirm Administered Dose 10 mg .ROUTE .STK-MED ONE Stop: 11/10/16 15:38 Nalbuphine HCl (Nubain) 5 mg IVPUSH Q3H PRN PRN Reason: Pruritis Stop: 11/11/16 16:58 Naloxone HCl (Narcan) 0.1 mg IVPUSH ONETIME PRN PRN Reason: Oversedation Stop: 11/11/16 16:58 Ondansetron HCl (Zofran) Confirm Administered Dose 4 mg .ROUTE .STK-MED ONE Stop: 11/10/16 15:38 Oxytocin (Pitocin) Confirm Administered Dose 20 unit .ROUTE .STK-MED ONE Stop: 11/10/16 15:38 Oxytocin (Pitocin) Confirm Administered Dose 10 unit .ROUTE .STK-MED ONE Stop: 11/10/16 16:42 Phenylephrine HCl (Phenylephrine In Ns 100 Mcg/Ml) Confirm Administered Dose 1 mg .ROUTE .STK-MED ONE Stop: 11/10/16 16:13 - Interaction Disposition, : [place] at Bedside Infant Interaction: Holding Infant Feeding: Breastfed ; Nursed Well Support Person: - Recovery Exam Fundal Tone: Firm Fundal Level: At Umbilicus Fundal Placement: Midline Lochia Amount: Scant Lochia Color: Rubra/Red Perineum Description: Intact, Minimal Bruising/Swelling Episiotomy/Laceration: None Bladder Status: Voiding Urinary Elimination: Voided - Exam General: alert, oriented HEENT: Pupils equal Neck: supple Lungs: Normal respiratory effort Abdomen: soft, no tenderness, no distension Extremities: No: no edema (1+ bilaterally) Skin: warm, dry, intact Wound/Incisions: healing well Neurological: no new focal deficit Psy/Mental Status: alert, normal affect, normal mood - Problem List & Annotations (1) Breech, purvi SNOMED Code(s): 29947045 Code(s): O32.1XX0 - MATERNAL CARE FOR BREECH PRESENTATION, UNSP Status: Acute Current Visit: Yes (2) delivery delivered SNOMED Code(s): 581742142 Code(s): O82 - ENCOUNTER FOR DELIVERY WITHOUT INDICATION Status: Acute Current Visit: Yes - Problem List Review Problem List Initiated/Reviewed/Updated: Yes - My Orders Last 24 Hours: My Active Orders 11/13/16 09:45 Ready for Discharge [RC] PER UNIT ROUTINE - Assessment Assessment:: POD3 after primary for breech presentation, pain well controlled.No complaints, ready to be discharged later today. - Plan Plan:: Dismiss to home Discharge instructions reviewed.
[2016-11-13 14:17] VITALS: BP 105/64
== END 2016-11-13 12:15 | disposition home or self-care (01) | DRG 540 ==
LOC: MW.OBCHECK 14:36 → MW.OB 14:36 → MW.OBCHECK 14:40 → MW.OB 14:50 → OBSVTOIN 16:26 → MW.OB 21:04
PROVIDERS: ADMIT Obstetrics & Gynecology; ATTEND Obstetrics & Gynecology
PROC: 10D00Z1 Extraction of Products of Conception, Low, Open Approach (ICD-10-PCS; principal; 2016-11-10)
DX: O32.1XX0 Maternal care for breech presentation, not applicable or unspecified (principal); Z3A.38 38 weeks gestation of pregnancy; Z37.0 Single live birth; Z22.330 Carrier of Group B streptococcus
CPT/HCPCS: 01961; 36415; 51703; 59025; 85014; 85018; 85027; 86850; 86900; 86901; A9270-GY; J1885; J2270; J2405; J2590; J3010; J7120

== ENCOUNTER 2016-12-12 10:06 | Emergency (ER) | payer BC, OTHER ==
[2016-12-12] MEDS ORDERED: Sodium Chloride 0.9% 1,000 ML IV ONE (10:19)
[2016-12-12] MEDS ORDERED: Sodium Chloride 0.9% 2.5 ML Syringe FLUSH PRN (10:19)
[2016-12-12] MEDS ORDERED: Ketorolac 30 MG/ML SDV IVPUSH ONE (10:19)
[2016-12-12] MEDS ORDERED: Sodium Chloride 0.9% 10 ML Syringe FLUSH PRN (10:19)
--- NOTE | 2016-12-12 10:31 | EDM.PDOC ---
ED HISTORY OF PRESENT ILLNESS - General Chief Complaint: Chest Pain Stated Complaint: CHEST PAIN Time Seen by Provider: 12/12/16 10:18 Source of Information: Reports: Patient History Limitations: Reports: No limitations - History of Present Illness INITIAL COMMENTS - FREE TEXT/NARRATIVE: History of present illness: [] Patient is one month and last night developed sharp left-sided chest pain that is worse with breathing. She denies any fevers, chills, cough or abdominal pain. He has felt mildly lightheaded and states her chest pain radiates to the right posterior side of her neck, pain does not increase with movement of her neck or arms. She denies any trauma. Review of systems: As per history of present illness and below otherwise all systems reviewed and negative. Past medical history: As per history of present illness and as reviewed below otherwise noncontributory. Surgical history: As per history of present illness and as reviewed below otherwise noncontributory. Social history: No reported history of drug or alcohol abuse. Family history: As per history of present illness and as reviewed below otherwise noncontributory. Physical exam: General: Well developed, well nourished in NAD HEENT: Atraumatic, normocephalic, pupils reactive, negative for conjunctival pallor or scleral icterus, mucous membranes moist, throat clear, neck supple, nontender, trachea midline. Lungs: Clear to auscultation, breath sounds equal bilaterally, chest nontender. Heart: S1S2, regular, negative for clicks, rubs, or JVD. Abdomen: Soft, nondistended, nontender. Negative for masses or hepatosplenomegaly. Negative for costovertebral tenderness. Pelvis: Stable nontender. Genitourinary: Deferred. Rectal: Deferred. Extremities: Atraumatic, negative for cords or calf pain. Neurovascular unremarkable. Neuro: Awake, alert, oriented. Cranial nerves II through XII unremarkable. Cerebellum unremarkable. Motor and sensory unremarkable throughout. Exam nonfocal. Diagnostics: [] Therapeutics: [] Impression: [] Plan: [] Definitive disposition and diagnosis as appropriate pending reevaluation and review of above. - Related Data Allergies/ADRs: Allergies Allergy/AdvReac Type Severity Reaction Status Date / Time No Known Allergies Allergy Verified 11/15/15 16:06 Home Meds: Home Meds buPROPion HCl [Wellbutrin Xl] 300 mg PO DAILY 11/15/15 [History] Enoxaparin Sodium [Lovenox] 68 mg SQ BID #10 ml 12/12/16 [Rx] Gentian Anabel 59 ml TP DAILY 12/12/16 [History] Warfarin [Coumadin] 5 mg PO DAILY #20 tablet 12/12/16 [Rx] Past Medical History - Past Health History Medical/Surgical History: Denies Medical/Surgical History HEENT History: Reports: None Cardiovascular History: Reports: None Respiratory History: Reports: None Gastrointestinal History: Reports: Irritable bowel syndrome Genitourinary History: Reports: None [employer] History: Reports: Musculoskeletal History: Reports: None Neurological History: Reports: None Psychiatric History: Reports: Anxiety Endocrine/Metabolic History: Reports: None Hematologic History: Reports: None Immunologic History: Reports: None Oncologic (Cancer) History: Reports: None Dermatologic History: Reports: None - Infectious Disease History Infectious Disease History: Reports: None - Past Surgical History HEENT Surgical History: Reports: Oral surgery GI Surgical History: Reports: Colonoscopy Social & Family History - Family History Family Medical History: Noncontributory Cardiac: Reports: Heart failure, Hypertension, [place] Neurological: Reports: Dementia Oncologic: Reports: Colon, Esophageal - Tobacco Use Smoking Status *Q: Never Smoker Second Hand Smoke Exposure: No - Caffeine Use Caffeine Use: Reports: None - Recreational Drug Use Recreational Drug Use: No ED ROS GENERAL - Review of Systems Review Of Systems: See Below (See history of present illness) ED EXAM, GENERAL - Physical Exam Exam: See Below (See history of present illness) Course - Vital Signs Last Recorded V/S: Last Vital Signs Temp 36.8 C 12/12/16 10:17 Pulse 89 12/12/16 11:59 Resp 16 12/12/16 11:59 BP 92/62 12/12/16 11:59 Pulse Ox 96 12/12/16 11:59 - Orders/Labs/Meds Orders: Active Orders 24 hr Category Date Time Status EKG Documentation Completion [RC] STAT Care 12/12/16 10:29 Active Sodium Chloride 0.9% [Saline Flush] Med 12/12/16 10:19 Active 10 ml FLUSH ASDIRECTED PRN Sodium Chloride 0.9% [Saline Flush] Med 12/12/16 10:19 Active 2.5 ml FLUSH ASDIRECTED PRN Peripheral IV Insertion Adult [OM.PC] Stat Oth 12/12/16 10:18 Ordered Medication Orders Sodium Chloride (Saline Flush) 10 ml FLUSH ASDIRECTED PRN PRN Reason: Keep Vein Open Last Admin: 12/12/16 10:56 Dose: 10 ml Sodium Chloride (Saline Flush) 2.5 ml FLUSH ASDIRECTED PRN PRN Reason: Keep Vein Open Last Admin: 12/12/16 10:56 Dose: 2.5 ml Labs: Laboratory Tests 12/12/16 12/12/16 12/12/16 Range/Units 10:37 10:37 10:37 WBC 7.32 (4.0-11.0) K/uL RBC 4.45 (4.30-5.90) M/uL Hgb 13.6 (12.0-16.0) g/dL Hct 42.2 (36.0-46.0) % MCV 94.8 (80.0-98.0) fL MCH 30.6 (27.0-32.0) pg MCHC 32.2 (31.0-37.0) g/dL RDW Std Deviation 45.2 (28.0-62.0) fl RDW Coeff of Ceasar 13 (11.0-15.0) % Plt Count 301 (150-400) K/uL MPV 9.50 (7.40-12.00) fL Neut % (Auto) 66.5 (48.0-80.0) % Lymph % (Auto) 23.4 (16.0-40.0) % [place] % (Auto) 8.1 (0.0-15.0) % Eos % (Auto) 1.5 (0.0-7.0) % Baso % (Auto) 0.5 (0.0-1.5) % Neut # (Auto) 4.9 (1.4-5.7) K/uL Lymph # (Auto) 1.7 (0.6-2.4) K/uL [place] # (Auto) 0.6 (0.0-0.8) K/uL Eos # (Auto) 0.1 (0.0-0.7) K/uL Baso # (Auto) 0.0 (0.0-0.1) K/uL Nucleated RBC % 0.0 /100WBC Nucleated RBCs # 0 K/uL INR 1.01 (0.86-1.11) APTT (18.6-31.3) SEC Sodium 140 (136-146) mmol/L Potassium 4.2 (3.5-5.1) mmol/L Chloride 108 (98-110) mmol/L Carbon Dioxide 25 (21-31) mmol/L BUN 13 (6.0-23.0) mg/dL Creatinine 0.9 (0.6-1.5) mg/dL Est Cr Clr Drug Dosing 80.36 mL/min Estimated GFR (MDRD) > 60.0 ml/min Glucose 83 (60-110) mg/dL Calcium 9.1 (8.8-10.8) mg/dL Total Bilirubin 0.4 (0.1-1.5) mg/dL AST 16 (5-40) IU/L ALT 17 (8-54) IU/L Alkaline Phosphatase 79 (40-150) Total Protein 6.5 (6.0-8.0) g/dL Albumin 3.8 (3.5-5.0) g/dL Globulin 2.7 (2.0-3.5) g/dL Albumin/Globulin Ratio 1.4 (1.3-2.8) 12/12/16 Range/Units 10:37 WBC (4.0-11.0) K/uL RBC (4.30-5.90) M/uL Hgb (12.0-16.0) g/dL Hct (36.0-46.0) % MCV (80.0-98.0) fL MCH (27.0-32.0) pg MCHC (31.0-37.0) g/dL RDW Std Deviation (28.0-62.0) fl RDW Coeff of Ceasar (11.0-15.0) % Plt Count (150-400) K/uL MPV (7.40-12.00) fL Neut % (Auto) (48.0-80.0) % Lymph % (Auto) (16.0-40.0) % [place] % (Auto) (0.0-15.0) % Eos % (Auto) (0.0-7.0) % Baso % (Auto) (0.0-1.5) % Neut # (Auto) (1.4-5.7) K/uL Lymph # (Auto) (0.6-2.4) K/uL [place] # (Auto) (0.0-0.8) K/uL Eos # (Auto) (0.0-0.7) K/uL Baso # (Auto) (0.0-0.1) K/uL Nucleated RBC % /100WBC Nucleated RBCs # K/uL INR (0.86-1.11) APTT 32.7 H (18.6-31.3) SEC Sodium (136-146) mmol/L Potassium (3.5-5.1) mmol/L Chloride (98-110) mmol/L Carbon Dioxide (21-31) mmol/L BUN (6.0-23.0) mg/dL Creatinine (0.6-1.5) mg/dL Est Cr Clr Drug Dosing mL/min Estimated GFR (MDRD) ml/min Glucose (60-110) mg/dL Calcium (8.8-10.8) mg/dL Total Bilirubin (0.1-1.5) mg/dL AST (5-40) IU/L ALT (8-54) IU/L Alkaline Phosphatase (40-150) Total Protein (6.0-8.0) g/dL Albumin (3.5-5.0) g/dL Globulin (2.0-3.5) g/dL Albumin/Globulin Ratio (1.3-2.8) Meds: Medications Generic Name Dose Route Start Last Admin Trade Name Freq PRN Reason Stop Dose Admin Sodium Chloride 10 ml 12/12/16 10:19 12/12/16 10:56 Saline Flush FLUSH 10 ml ASDIRECTED PRN Administration Keep Vein Open Sodium Chloride 2.5 ml 12/12/16 10:19 12/12/16 10:56 Saline Flush FLUSH 2.5 ml ASDIRECTED PRN Administration Keep Vein Open Discontinued Medications Generic Name Dose Route Start Last Admin Trade Name Freq PRN Reason Stop Dose Admin Sodium Chloride 1,000 mls @ 999 mls/hr 12/12/16 10:19 12/12/16 10:50 Normal Saline IV 12/12/16 11:19 999 mls/hr .Bolus ONE Administration Iopamidol 50 ml 12/12/16 11:54 12/12/16 11:55 Isovue Multipack-370 (76%) IVPUSH 12/12/16 11:55 50 ml ONETIME STA Administration Ketorolac Tromethamine 30 mg 12/12/16 10:19 12/12/16 10:54 Toradol IVPUSH 12/12/16 10:20 30 mg ONETIME ONE Administration Departure - Departure Time of Disposition: 13:16 Disposition: Home, Self-Care 01 Condition: good Clinical Impression: Pulmonary embolism Qualifiers: Pulmonary embolism type: other Chronicity: acute Acute cor pulmonale presence: without acute cor pulmonale Qualified Code(s): I26.99 - Other pulmonary embolism without acute cor pulmonale Prescriptions: Enoxaparin Sodium [Lovenox] 68 mg SQ BID #10 ml Warfarin [Coumadin] 5 mg PO DAILY #20 tablet Forms: ED Department Discharge Additional Instructions: The following information is given to patients seen in the emergency department who are being discharged to home. This information is to outline your options for follow-up care. We provide all patients seen in our emergency department with a follow-up referral. The need for follow-up, as well as the timing and circumstances, are variable depending upon the specifics of your emergency department visit. If you don't have a primary care physician on staff, we will provide you with a referral. We always advise you to contact your personal physician following an emergency department visit to inform them of the circumstance of the visit and for follow-up with them and/or the need for any referrals to a consulting specialist. The emergency department will also refer you to a specialist when appropriate. This referral assures that you have the opportunity for follow-up care with a specialist. All of these measure are taken in an effort to provide you with optimal care, which includes your follow-up. Under all circumstances we always encourage you to contact your private physician who remains a resource for coordinating your care. When calling for follow-up care, please make the office aware that this follow-up is from your recent emergency room visit. If for any reason you are refused follow-up, please contact the [facility] Emergency Department at and asked to speak to the emergency department charge nurse. Use Lovenox as directed and start Coumadin Follow up with your doctor on Thursday [facility] [address] [place] [id number] - My Orders Last 24 Hours: My Active Orders 12/12/16 10:18 Peripheral IV Insertion Adult [OM.PC] Stat 12/12/16 10:19 Sodium Chloride 0.9% [Saline Flush] 10 ml FLUSH ASDIRECTED PRN Sodium Chloride 0.9% [Saline Flush] 2.5 ml FLUSH ASDIRECTED PRN 12/12/16 10:29 EKG Documentation Completion [RC] STAT - Assessment/Plan Last 24 Hours: My Active Orders 12/12/16 10:18 Peripheral IV Insertion Adult [OM.PC] Stat 12/12/16 10:19 Sodium Chloride 0.9% [Saline Flush] 10 ml FLUSH ASDIRECTED PRN Sodium Chloride 0.9% [Saline Flush] 2.5 ml FLUSH ASDIRECTED PRN 12/12/16 10:29 EKG Documentation Completion [RC] STAT
[2016-12-12 11:19] LABS: CHLORIDE,CL 108 mmol/L (98-110); SODIUM,NA 140 mmol/L (136-146)
[2016-12-12] MEDS ORDERED: Iopamidol 755 MG/ML 500 ML Multipack Bottle IVPUSH STA (11:54)
--- NOTE | 2016-12-12 12:50 | CT ---
EXAMINATION: CTA chest HISTORY: Right lower chest pain, COMPARISON: None TECHNIQUE: Axial CT images obtained through the chest following the administration of 50 mL of Isovu e-370 the right antecubital fossa. Coronal and sagittal reconstructions obtained. FINDINGS: The lungs are clear without focal consolidation. There is a trace left pleural effusion. T here is mild dependent atelectasis. The heart is normal in size without a pericardial effusion. The thoracic aorta is normal in caliber. There is a filling defect within several segments of the left l ower lobe, however these appear peripheral with contrast noted distally within the involved pulmonar y arteries. Otherwise the remaining pulmonary arteries appear patent. No mediastinal or hilar lympha denopathy. No axillary lymphadenopathy. The visualized images of the upper abdomen appear grossly unremarkable. No suspicious osseous abnormalities are noted. IMPRESSION: 1. Peripheral filling defects within several segmental pulmonary arteries within the left lower lobe . These have the appearance of chronic pulmonary emboli, however there is a trace left pleural effus ion. Correlate with history of previous PE. 2. Otherwise no acute cardiopulmonary findings.
[2016-12-12] MEDS ORDERED: Enoxaparin 60 MG/0.6 ML Syringe SUBCUT ONE (13:30)
[2016-12-12 13:52] VITALS: BP 98/65
== END 2016-12-12 13:48 | disposition home or self-care (01) ==
LOC: MW.ED 10:06
DX: I26.99 Other pulmonary embolism without acute cor pulmonale (principal); F41.9 Anxiety disorder, unspecified; Z98.890 Other specified postprocedural states; Z79.01 Long term (current) use of anticoagulants; Z79.899 Other long term (current) drug therapy
CPT/HCPCS: 71275; 80053; 85025; 85610; 85730; 93005; 96361; 96372; 96374; 99285; J1650; J1885; J7040; Q9967; 99284

== ENCOUNTER 2016-12-13 00:42 | Emergency (ER) | payer BC, OTHER ==
--- NOTE | 2016-12-13 01:37 | EDM.PDOC ---
ED HPI Trauma - General Chief Complaint: Lower Extremity Injury/Pain Stated Complaint: PAIN ON LEFT SIDE EARLIER- NOW LEFT LEG TINGLING Time Seen by Provider: 12/13/16 00:55 - History of Present Illness INITIAL COMMENTS - FREE TEXT/NARRATIVE: HISTORY AND PHYSICAL: History of present illness: Patient is a 26-year-old female who is status post delivery of an on November 10 and presented earlier today to the ER with chest pain and was diagnosed with several small chronic appearing pulmonary emboli on the left. Patient was started on Coumadin and Lovenox and states that she went home and was still having some discomfort but no shortness of breath fevers chills or abdominal complaints. The patient is breast-feeding. The patient represents tonight stating that she feels tingling in her left leg from the knee down to the toes. It is like a stocking feeling that his tingling and there is no weakness but she states when somebody touches the area it feels normal. She has no pain no weakness and no proximal thigh or lower back discomfort or neurosensory changes. She has no bowel or bladder disturbances no lower back pain no buttocks pain. Review of systems: As per history of present illness and below otherwise all systems reviewed and negative. Past medical history: As per history of present illness and as reviewed below otherwise noncontributory. Surgical history: As per history of present illness and as reviewed below otherwise noncontributory. Social history: No reported history of drug or alcohol abuse. Family history: As per history of present illness and as reviewed below otherwise noncontributory. Physical exam: General: Well-developed well-nourished female who moves easily in ED without distress. Vital signs of been reviewed by me HEENT: Atraumatic, normocephalic, negative for conjunctival pallor or scleral icterus, mucous membranes moist, throat clear, neck supple, nontender, trachea midline. Lungs: Clear to auscultation, breath sounds equal bilaterally, chest nontender. Heart: S1S2, regular, negative for clicks, rubs, or JVD. Abdomen: Soft, nondistended, nontender. Negative for masses or hepatosplenomegaly. Negative for costovertebral tenderness. Pelvis: Stable nontender. Genitourinary: Deferred. Rectal: Deferred. Extremities: Atraumatic, negative for cords or calf pain. Neurovascular unremarkable. Full range of motion no defects or deficits and no leg discrepancy. There is no pedal edema. Neuro: Awake, alert, oriented. Cranial nerves II through XII unremarkable. Cerebellum unremarkable. Motor and sensory unremarkable throughout. A simple touch and pressure I am unable to distinguish a difference right versus left and the patient states it feels completely same on each side but she subjectively feels tingling. Exam nonfocal. Dorsi and plantar flexion is 5/5 bilaterally inclusive of the great toe inversion and eversion are equal bilaterally and intact Back: There are no midline step-offs and as defects of the thoracic or lumbar spine no CVA tenderness and no palpable deformities. There is no buttocks tenderness. Diagnostics: Left leg Doppler Therapeutics: [] 0139: I discussed the case with Dr. Noble as Dr. miguel was the patient's [employer]EL[employer]. She is aware of the CTA results from earlier as well the patient presenting symptoms and she also feels that her symptoms not this would correlate and she is currently anticoagulated. She does agree to go ahead and do a Doppler of the left leg and the patient will need to followup in the clinic for treatment with her Coumadin. She agrees that evaluation of the lumbar spine is likely not indicated as the patient has no pain weakness or other objectified sensory changes. The patient and at bedside are aware of Doppler results. Patient feels reassured and still says that she has some discomfort in her chest wall from earlier she has some leftover Percocet at home but I told her she could use as well as [id number] ibuprofen or Tylenol. I told her to call the clinic for followup and to get connected with the Coumadin clinic and that if she has any difficulties to contact Dr. Miguel's office to assist her. I have advised her on reasons to return to the ED. Impression: Subjective paresthesia of left lower leg stable, newly diagnosed chronic PE on medication Definitive disposition and diagnosis as appropriate pending reevaluation and review of above. Allergies/ADRs: Allergies No Known Allergies Allergy (Verified 12/13/16 00:51) Home Medications: Ambulatory Orders buPROPion HCl [Wellbutrin Xl] 300 mg PO DAILY 11/15/15 [Confirmed 12/13/16] Enoxaparin Sodium [Lovenox] 68 mg SQ BID #10 ml 12/12/16 [Confirmed 12/13/16] Warfarin [Coumadin] 5 mg PO DAILY #20 tablet 12/12/16 [Confirmed 12/13/16] Past Medical History - Past Health History Medical/Surgical History: Denies Medical/Surgical History HEENT History: Reports: None Cardiovascular History: Reports: None Respiratory History: Reports: None Gastrointestinal History: Reports: Irritable bowel syndrome Genitourinary History: Reports: None [employer]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: Musculoskeletal History: Reports: None Neurological History: Reports: None Psychiatric History: Reports: Anxiety Endocrine/Metabolic History: Reports: None Hematologic History: Reports: None Immunologic History: Reports: None Oncologic (Cancer) History: Reports: None Dermatologic History: Reports: None - Infectious Disease History Infectious Disease History: Reports: None - Past Surgical History HEENT Surgical History: Reports: Oral surgery GI Surgical History: Reports: Colonoscopy Social & Family History - Family History Family Medical History: Noncontributory Cardiac: Reports: Heart failure, Hypertension, [place] Neurological: Reports: Dementia Oncologic: Reports: Colon, Esophageal - Tobacco Use Smoking Status *Q: Never Smoker Second Hand Smoke Exposure: No - Caffeine Use Caffeine Use: Reports: None - Recreational Drug Use Recreational Drug Use: No Review of Systems - Review of Systems Review Of Systems: ROS reveals no pertinent complaints other than HPI. Trauma Exam - Physical Exam Exam: See Below (See dictation) Course - Vital Signs Last Recorded V/S: Last Vital Signs Temp 36.4 C 12/13/16 00:53 Pulse 71 12/13/16 00:53 Resp 16 12/13/16 00:53 BP 98/64 12/13/16 00:53 Pulse Ox 98 12/13/16 00:53 - Orders/Labs/Meds Orders: Active Orders 24 hr Category Date Time Status Venous Doppler Lwr Ext Bi [US] Stat Exams 12/13/16 01:28 Taken Departure - Departure Time of Disposition: 03:05 Disposition: Home, Self-Care 01 Condition: good Clinical Impression: Paresthesia of lower extremity Forms: ED Department Discharge Additional Instructions: The following information is given to patients seen in the emergency department who are being discharged to home. This information is to outline your options for follow-up care. We provide all patients seen in our emergency department with a follow-up referral. The need for follow-up, as well as the timing and circumstances, are variable depending upon the specifics of your emergency department visit. If you don't have a primary care physician on staff, we will provide you with a referral. We always advise you to contact your personal physician following an emergency department visit to inform them of the circumstance of the visit and for follow-up with them and/or the need for any referrals to a consulting specialist. The emergency department will also refer you to a specialist when appropriate. This referral assures that you have the opportunity for followup care with a specialist. All of these measure are taken in an effort to provide you with optimal care, which includes your followup. Under all circumstances we always encourage you to contact your private physician who remains a resource for coordinating your care. When calling for followup care, please make the office aware that this follow-up is from your recent emergency room visit. If for any reason you are refused follow-up, please contact the [facility] emergency department at and ask to speak to the emergency department charge nurse. [facility] Primary care- Internal Medicine and [facility] [address] [place] [id number] [facility] [address] [place] [id number] Please contact our clinic for followup for your Coumadin management on Thursday and C7 that you're in the ED and need this emergent followup. Please use her Lovenox and Coumadin as prescribed earlier today. If you have any trouble getting him to our family practice or internal medicine clinic please notify Dr. Miguel's office to help assist you. Return to ER as needed and as we discussed. Use [id number] Tylenol or ibuprofen for any pain and he may also use her left upper pain medications from your as needed. - My Orders Last 24 Hours: My Active Orders 12/13/16 01:28 Venous Doppler Lwr Ext Bi [US] Stat - Assessment/Plan Last 24 Hours: My Active Orders 12/13/16 01:28 Venous Doppler Lwr Ext Bi [US] Stat
[2016-12-13] MEDS ORDERED: Enoxaparin 100 MG/1 ML Syringe ONE (03:03)
[2016-12-13] MEDS ORDERED: Enoxaparin 100 MG/1 ML Syringe SUBCUT ONE (03:08)
[2016-12-13 03:29] VITALS: BP 107/69
--- NOTE | 2016-12-15 10:26 | US ---
EXAM DATE: 12/13/16 PATIENT'S AGE: 26 Patient: ALEXIS GRAJEDA Facility: [place], [place] Site . Site : 1990 Study: US Extremity Bilateral [id number]/15/2017 2:43:59 AM Ordering Physician: Kayleen Parks Final Report: INDICATION: Pulmonary embolus on CT. TECHNIQUE: Ultrasound venous duplex lower extremity bilateral. Compression venous exam was performed using holly-scale, color Doppler, and spectral Doppler imaging. COMPARISON: None available. FINDINGS: Visualized bilateral common femoral, greater saphenous, deep femoral, superficial femoral, popliteal, posterior tibial and peroneal veins are patent, without evidence of venous thrombosis. Soft tissues elsewhere as imaged are unremarkable. IMPRESSION: No deep venous thrombosis in the bilateral lower extremities. Dictated by William Gore MD @ 12/13/2016 2:47:39 AM Dictated by: William Gore MD @ 12/13/2016 02:47:47 (Electronic Signature) Report Signed by Proxy and Original Signed Document filed in the Medical Record. [facility]
== END 2016-12-13 03:25 | disposition home or self-care (01) ==
LOC: MW.ED 00:42
DX: R20.2 Paresthesia of skin (principal); F41.9 Anxiety disorder, unspecified; Z79.01 Long term (current) use of anticoagulants; Z79.899 Other long term (current) drug therapy; Z98.890 Other specified postprocedural states
CPT/HCPCS: 93970; 96372; 99284; J1650; 99283

== ENCOUNTER → 2016-12-17 | Outpatient (CLI) | payer BC, OTHER | END | disposition home or self-care (01) | LOC: MW.CHIM 09:43 | PROVIDERS: ATTEND Internal Medicine | DX: I26.99 Other pulmonary embolism without acute cor pulmonale (principal) | CPT/HCPCS: 36415; 85025; 85610 ==

== ENCOUNTER 2016-12-27 21:35 | Emergency (ER) | payer BC ==
[2016-12-27] MEDS ORDERED: Sodium Chloride 0.9% 1,000 ML IV ONE (21:47)
--- NOTE | 2016-12-27 22:10 | EDM.PDOC ---
<Jackson Martinez - Last Filed: 12/27/16 22:42> ED HPI GENERAL MEDICAL PROBLEM - General Chief Complaint: Back Pain or Injury Stated Complaint: UNK Time Seen by Provider: 12/27/16 21:40 Source of Information: Reports: Patient History Limitations: Reports: No limitations - History of Present Illness INITIAL COMMENTS - FREE TEXT/NARRATIVE: History of present illness: [26-year-old female comes in complaining of lung pain. Patient indicates that she was diagnosed this month with a PE, receive treatment with Lovenox injection and was bridged into Coumadin approximately 2 weeks ago. Patient indicates that she did have one INR drawn at a result of 1.9 and has subsequently started feeling increasing pain in posterior lung field.] Review of systems: As per history of present illness and below otherwise all systems reviewed and negative. Past medical history: As per history of present illness and as reviewed below otherwise noncontributory. Surgical history: As per history of present illness and as reviewed below otherwise noncontributory. Social history: No reported history of drug or alcohol abuse. Family history: As per history of present illness and as reviewed below otherwise noncontributory. Physical exam: HEENT: Atraumatic, normocephalic, pupils reactive, negative for conjunctival pallor or scleral icterus, mucous membranes moist, throat clear, neck supple, nontender, trachea midline. Lungs: Clear to auscultation, breath sounds equal bilaterally, chest nontender. Heart: S1S2, regular, negative for clicks, rubs, or JVD. Abdomen: Soft, nondistended, nontender. Negative for masses or hepatosplenomegaly. Negative for costovertebral tenderness. Pelvis: Stable nontender. Genitourinary: Deferred. Rectal: Deferred. Extremities: Atraumatic, negative for cords or calf pain. Neurovascular unremarkable. Neuro: Awake, alert, oriented. Cranial nerves II through XII unremarkable. Cerebellum unremarkable. Motor and sensory unremarkable throughout. Exam nonfocal. Patient is satting mid to high 90s on room air, there is no increased work of breathing and/or shortness of breath. Patient does indicate that when she has deep inspiration she perceives increased pain and gestures midthoracic spine. Diagnostics: [CBC, CMP, INR, PTT, CTA chest] Therapeutics: [IV fluid] Impression: [] Plan: [] Definitive disposition and diagnosis as appropriate pending reevaluation and review of above. Left Middle Back Pain Score (Numeric/FACES): 4 Headache Pain Score (Numeric/FACES): 4 - Related Data Allergies Allergy/AdvReac Type Severity Reaction Status Date / Time No Known Allergies Allergy Verified 12/27/16 23:52 Home Meds: Home Meds buPROPion HCl [Wellbutrin Xl] 300 mg PO DAILY 11/15/15 [History] Warfarin [Coumadin] 5 mg PO DAILY #20 tablet 12/12/16 [Rx] Docosahexanoic Acid [ Dha] 200 mg PO DAILY 12/27/16 [History] Past Medical History - Past Health History Medical/Surgical History: Denies Medical/Surgical History HEENT History: Reports: None Cardiovascular History: Reports: None Respiratory History: Reports: None Gastrointestinal History: Reports: Irritable bowel syndrome Genitourinary History: Reports: None 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: Musculoskeletal History: Reports: None Neurological History: Reports: None Psychiatric History: Reports: Anxiety Endocrine/Metabolic History: Reports: None Hematologic History: Reports: None Immunologic History: Reports: None Oncologic (Cancer) History: Reports: None Dermatologic History: Reports: None - Infectious Disease History Infectious Disease History: Reports: None - Past Surgical History HEENT Surgical History: Reports: Oral surgery GI Surgical History: Reports: Colonoscopy Social & Family History - Family History Family Medical History: Noncontributory Cardiac: Reports: Heart failure, Hypertension, CT Neurological: Reports: Dementia Oncologic: Reports: Colon, Esophageal - Tobacco Use Smoking Status *Q: Never Smoker Second Hand Smoke Exposure: No - Caffeine Use Caffeine Use: Reports: None - Recreational Drug Use Recreational Drug Use: No ED ROS GENERAL - Review of Systems Review Of Systems: See Below (History of present illness) ED EXAM, GENERAL - Physical Exam Exam: See Below (History of present illness) Course - Vital Signs Last Recorded V/S: Last Vital Signs Temp 36.2 C 12/27/16 21:39 Pulse 67 12/27/16 23:46 Resp 20 12/27/16 23:46 BP 93/51 L 12/27/16 23:46 Pulse Ox 96 12/27/16 23:46 - Orders/Labs/Meds Orders: Active Orders 24 hr Category Date Time Status CTA Chest W WO Contrast [Ang Chest] [CT] Stat Exams 12/27/16 21:49 Taken Labs: Laboratory Tests 12/27/16 12/27/16 12/27/16 Range/Units 22:04 22:04 22:04 WBC 7.70 (4.0-11.0) K/uL RBC 4.52 (4.30-5.90) M/uL Hgb 14.0 (12.0-16.0) g/dL Hct 43.2 (36.0-46.0) % MCV 95.6 (80.0-98.0) fL MCH 31.0 (27.0-32.0) pg MCHC 32.4 (31.0-37.0) g/dL RDW Std Deviation 45.8 (28.0-62.0) fl RDW Coeff of Ceasar 13 (11.0-15.0) % Plt Count 416 H (150-400) K/uL MPV 9.30 (7.40-12.00) fL Neut % (Auto) 46.5 L (48.0-80.0) % Lymph % (Auto) 43.1 H (16.0-40.0) % Porter % (Auto) 8.2 (0.0-15.0) % Eos % (Auto) 1.4 (0.0-7.0) % Baso % (Auto) 0.8 (0.0-1.5) % Neut # (Auto) 3.6 (1.4-5.7) K/uL Lymph # (Auto) 3.3 H (0.6-2.4) K/uL Porter # (Auto) 0.6 (0.0-0.8) K/uL Eos # (Auto) 0.1 (0.0-0.7) K/uL Baso # (Auto) 0.1 (0.0-0.1) K/uL Nucleated RBC % 0.0 /100WBC Nucleated RBCs # 0 K/uL INR 1.84 H (0.86-1.11) APTT (18.6-31.3) SEC Sodium 141 (136-146) mmol/L Potassium 4.5 (3.5-5.1) mmol/L Chloride 106 (98-110) mmol/L Carbon Dioxide 26 (21-31) mmol/L BUN 16 (6.0-23.0) mg/dL Creatinine 1.2 (0.6-1.5) mg/dL Est Cr Clr Drug Dosing 60.27 mL/min Estimated GFR (MDRD) 53.5 ml/min Glucose 96 (60-110) mg/dL Calcium 9.2 (8.8-10.8) mg/dL Total Bilirubin 0.2 (0.1-1.5) mg/dL AST 17 (5-40) IU/L ALT 24 (8-54) IU/L Alkaline Phosphatase 69 (40-150) Total Protein 6.7 (6.0-8.0) g/dL Albumin 4.1 (3.5-5.0) g/dL Globulin 2.6 (2.0-3.5) g/dL Albumin/Globulin Ratio 1.6 (1.3-2.8) / Range/Units 22:04 WBC (4.0-11.0) K/uL RBC (4.30-5.90) M/uL Hgb (12.0-16.0) g/dL Hct (36.0-46.0) % MCV (80.0-98.0) fL MCH (27.0-32.0) pg MCHC (31.0-37.0) g/dL RDW Std Deviation (28.0-62.0) fl RDW Coeff of Ceasar (11.0-15.0) % Plt Count (150-400) K/uL MPV (7.40-12.00) fL Neut % (Auto) (48.0-80.0) % Lymph % (Auto) (16.0-40.0) % Porter % (Auto) (0.0-15.0) % Eos % (Auto) (0.0-7.0) % Baso % (Auto) (0.0-1.5) % Neut # (Auto) (1.4-5.7) K/uL Lymph # (Auto) (0.6-2.4) K/uL Porter # (Auto) (0.0-0.8) K/uL Eos # (Auto) (0.0-0.7) K/uL Baso # (Auto) (0.0-0.1) K/uL Nucleated RBC % /100WBC Nucleated RBCs # K/uL INR (0.86-1.11) APTT 39.8 H (18.6-31.3) SEC Sodium (136-146) mmol/L Potassium (3.5-5.1) mmol/L Chloride (98-110) mmol/L Carbon Dioxide (21-31) mmol/L BUN (6.0-23.0) mg/dL Creatinine (0.6-1.5) mg/dL Est Cr Clr Drug Dosing mL/min Estimated GFR (MDRD) ml/min Glucose (60-110) mg/dL Calcium (8.8-10.8) mg/dL Total Bilirubin (0.1-1.5) mg/dL AST (5-40) IU/L ALT (8-54) IU/L Alkaline Phosphatase (40-150) Total Protein (6.0-8.0) g/dL Albumin (3.5-5.0) g/dL Globulin (2.0-3.5) g/dL Albumin/Globulin Ratio (1.3-2.8) Meds: Medications Discontinued Medications Generic Name Dose Route Start Last Admin Trade Name Freq PRN Reason Stop Dose Admin Sodium Chloride 1,000 mls @ 999 mls/hr 12/27/16 21:47 12/27/16 22:05 Normal Saline IV 12/27/16 22:47 999 mls/hr STAT ONE Administration Iopamidol 50 ml 12/27/16 23:14 12/27/16 23:15 Isovue-370 (76%) IV 12/27/16 23:15 50 ml ONETIME STA Administration Departure - Departure Disposition: Home, Self-Care 01 Clinical Impression: Chest pain Forms: ED Department Discharge Additional Instructions: The following information is given to patients seen in the emergency department who are being discharged to home. This information is to outline your options for follow-up care. We provide all patients seen in our emergency department with a follow-up referral. The need for follow-up, as well as the timing and circumstances, are variable depending upon the specifics of your emergency department visit. If you don't have a primary care physician on staff, we will provide you with a referral. We always advise you to contact your personal physician following an emergency department visit to inform them of the circumstance of the visit and for follow-up with them and/or the need for any referrals to a consulting specialist. The emergency department will also refer you to a specialist when appropriate. This referral assures that you have the opportunity for followup care with a specialist. All of these measure are taken in an effort to provide you with optimal care, which includes your followup. Under all circumstances we always encourage you to contact your private physician who remains a resource for coordinating your care. When calling for followup care, please make the office aware that this follow-up is from your recent emergency room visit. If for any reason you are refused follow-up, please contact the [facility] emergency department at and asked to speak to the emergency department charge nurse. Continue current meds contact primary medical doctor 24-48 hours to discuss Coumadin therapy particularly dosing and schedule return as needed as discussed <[place] - Last Filed: 12/28/16 00:24> ED HPI GENERAL MEDICAL PROBLEM - History of Present Illness INITIAL COMMENTS - FREE TEXT/NARRATIVE: CT demonstrates interval resolution of the prior pulmonary embolism and no evidence of acute pulmonary embolism Departure - Departure Time of Disposition: 00:23 Condition: good
[2016-12-27] MEDS ORDERED: Iopamidol 755 MG/ML 50 ML Bottle IV STA (23:14)
[2016-12-28 11:11] VITALS: BP 101/64
--- NOTE | 2016-12-28 18:49 | CT ---
EXAM DATE: 12/27/16 PATIENT'S AGE: 26 Patient: ALEXIS GRAJEDA Facility: [place], [place] Site . Site : [id number] Study: CT Chest Angio [id number]/29/2017 11:09:06 PM Ordering Physician: Doctor Godoy Final Report: INDICATION: History of pulmonary embolus with new chest pain TECHNIQUE: CT chest pulmonary PE protocol acquired with 48 cc IV IV contrast. COMPARISON: December 12, 2026 T FINDINGS: Cardiovascular structures: Normal vascular enhancement of the pulmonary arteries , no sign of pulmonary embolism. Heart size is normal. No sign of aneurysm or dissection in the thoracic aorta. Mediastinum and kathi: No mass or adenopathy. Lungs: Clear. Pleura and pericardium: No effusions. Chest wall and axilla: No mass or adenopathy. Upper abdomen: Unremarkable. Bones: No significant findings. IMPRESSION: 1. Interval resolution of small filling defects and segmental branches of the left lower lobe. No evidence for acute pulmonary embolus. 2. No acute intrathoracic abnormality identified. Dictated by Petra Bonner MD @ Dec 27 2016 11:55PM (Electronic Signature) Report Signed by Proxy. [place]
== END 2016-12-28 00:56 | disposition home or self-care (01) ==
LOC: MW.ED 21:35
DX: R07.9 Chest pain, unspecified (principal); F41.9 Anxiety disorder, unspecified; Z86.711 Personal history of pulmonary embolism; Z79.01 Long term (current) use of anticoagulants; Z79.899 Other long term (current) drug therapy
CPT/HCPCS: 36415; 71275; 80053; 85025; 85610; 85730; 96360; 99284; J7040; Q9967

== ENCOUNTER 2017-08-11 18:16 | Emergency (ER) | payer OTHER ==
--- NOTE | 2017-08-11 18:48 | EDM.PDOC ---
ED HPI GENERAL MEDICAL PROBLEM - General Chief Complaint: Bite:Animal, Insect Stated Complaint: DOG BITE Time Seen by Provider: 08/11/17 18:20 Source of Information: Reports: Patient History Limitations: Reports: No Limitations - History of Present Illness INITIAL COMMENTS - FREE TEXT/NARRATIVE: HISTORY AND PHYSICAL: History of present illness: Patient is a 27-year-old female who presents to the emergency room with complaints of a dogbite to the left lateral knee. States that a neighbor dog came up to her leg and bit her. The neighbor reports that the dog is up-to-date on its immunizations. The patient herself did not report this to law enforcement , nursing staff did inform them and they will be up to talk with the patient and the daughter. Does not appear to have any actual puncture wound, appears to be an abrasion to the left lateral knee. There is no tenderness with palpation to the patella for the exterior knee. Patient is able to bear weight without any difficulty. Personal immunizations are up-to-date. Review of systems: As per history of present illness and below otherwise all systems reviewed and negative. Past medical history: As per history of present illness and as reviewed below otherwise noncontributory. Surgical history: As per history of present illness and as reviewed below otherwise noncontributory. Social history: No reported history of drug or alcohol abuse. Family history: As per history of present illness and as reviewed below otherwise noncontributory. Physical exam: Gen.: Well-developed and well-nourished 27-year-old female. Alert and oriented. Appears in no acute distress and is nontoxic appearing. HEENT: Atraumatic, normocephalic, pupils reactive, negative for conjunctival pallor or scleral icterus, mucous membranes moist, throat clear, neck supple, nontender, trachea midline. Lungs: Clear to auscultation, breath sounds equal bilaterally, chest nontender. Heart: S1S2, regular, negative for clicks, rubs, or JVD. Abdomen: Soft, nondistended, nontender. Negative for masses or hepatosplenomegaly. Negative for costovertebral tenderness. Pelvis: Stable nontender. Genitourinary: Deferred. Rectal: Deferred. Extremities/Skin: Abrasion noted to the left lateral knee which is approximately the size of a $0.50 piece. There is no obvious puncture wound or bleeding noted. Soft tissue swelling is noted. The patella, posterior knee, calf muscle were palpated and there was no tenderness or discomfort from the patient. Strong pedal pulses. Neurovascular unremarkable. Denies any numbness or tingling to the affected extremity. Neuro: Awake, alert, oriented. Cranial nerves II through XII unremarkable. Cerebellum unremarkable. Motor and sensory unremarkable throughout. Exam nonfocal. Enforcement was notified of the dog bite. Patient was informed that they need to get the records of the dog's immunizations. If the dog is not up-to-date she should receive the rabies vaccination. Patient voices understanding. Wound care was provided with chlorhexidine wash. Bacitracin and nonstick dressing were applied. Patient's tetanus is up-to-date, per patient. Check on the rabies immunization status of the dog. Augmentin 875 one tab twice a day 7 days. Patient states that her pain as a 3 out of 10 and she will use Tylenol and/or ibuprofen, declines any additional pain medication. Will follow up with her primary caregiver in the next 1-2 days. Denies any further questions at this time Enforcement has been here to talk with patient. Diagnostics: None Therapeutics: Wound care, topical bacitracin, nonstick dressing Impression: Animal bite Plan: 1. Please make sure that the immunization status of the neighbor's dog is up-to- date. If these records are not found you do need to receive the vaccine for rabies. Your tetanus immunization is up-to-date at this time. 2. May apply bacitracin for the first 1-2 days. Then please keep the wound clean and dry. Monitor for signs of infection. Augmentin has been prescribed, 1 tab twice daily 7 days. 3. Please use Tylenol and/or ibuprofen as needed for pain management. 4. Follow-up with your primary caregiver in the next 1-2 days. Return to the ED as needed and as discussed. Definitive disposition and diagnosis as appropriate pending reevaluation and review of above. Onset: Today Duration: Minutes: Location: Reports: Lower Extremity, Left left side of the knee Pain Score (Numeric/FACES): 3 - Related Data Allergies Allergy/AdvReac Type Severity Reaction Status Date / Time No Known Allergies Allergy Verified 08/11/17 18:28 Home Meds: Home Meds Docosahexanoic Acid [ Dha] 200 mg PO DAILY 12/27/16 [History] Past Medical History - Past Health History Medical/Surgical History: Denies Medical/Surgical History HEENT History: Reports: None Cardiovascular History: Reports: None Other Cardiovascular History: Pulmonary Embolism Respiratory History: Reports: None Other Respiratory History: Pulmonary Embolism Gastrointestinal History: Reports: Irritable Bowel Syndrome Genitourinary History: Reports: None 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: Musculoskeletal History: Reports: None Neurological History: Reports: None Psychiatric History: Reports: Anxiety Endocrine/Metabolic History: Reports: None Hematologic History: Reports: None Immunologic History: Reports: None Oncologic (Cancer) History: Reports: None Dermatologic History: Reports: None - Infectious Disease History Infectious Disease History: Reports: Chicken Pox - Past Surgical History Head Surgeries/Procedures: Reports: None HEENT Surgical History: Reports: Oral Surgery Female Surgical History: Reports: Section Social & Family History - Family History Family Medical History: Noncontributory Cardiac: Reports: Heart Failure, Hypertension, [place] Neurological: Reports: Dementia Oncologic: Reports: Colon, Esophageal - Tobacco Use Smoking Status *Q: Never Smoker Second Hand Smoke Exposure: No - Caffeine Use Caffeine Use: Reports: Coffee Caffeine Use Comment: 1cup/day - Recreational Drug Use Recreational Drug Use: No ED ROS GENERAL - Review of Systems Review Of Systems: ROS reveals no pertinent complaints other than HPI. ED EXAM, ANIMAL BITE - Physical Exam Exam: See Below (See dictation) Course - Vital Signs Last Recorded V/S: Last Vital Signs Temp 98.7 F 08/11/17 18:28 Pulse 110 H 08/11/17 18:28 Resp 18 08/11/17 18:28 BP 128/77 08/11/17 18:28 Pulse Ox 98 08/11/17 18:28 Departure - Departure Time of Disposition: 18:48 Disposition: Home, Self-Care 01 Clinical Impression: Animal bite - Discharge Information Instructions: Animal Bite, [id number] Referrals: Memo Cross MD [Primary Care Provider] - Additional Instructions: My general discharge The following information is given to patients seen in the emergency department who are being discharged to home. This information is to outline your options for follow-up care. We provide all patients seen in our emergency department with a follow-up referral. The need for follow-up, as well as the timing and circumstances, are variable depending upon the specifics of your emergency department visit. If you don't have a primary care physician on staff, we will provide you with a referral. We always advise you to contact your personal physician following an emergency department visit to inform them of the circumstance of the visit and for follow-up with them and/or the need for any referrals to a consulting specialist. The emergency department will also refer you to a specialist when appropriate. This referral assures that you have the opportunity for follow-up care with a specialist. All of these measure are taken in an effort to provide you with optimal care, which includes your follow-up. Under all circumstances we always encourage you to contact your private physician who remains a resource for coordinating your care. When calling for follow-up care, please make the office aware that this follow-up is from your recent emergency room visit. If for any reason you are refused follow-up, please contact the [facility] Emergency Department at and asked to speak to the emergency department charge nurse. [facility] [address] [place] [address] 1. Please make sure that the immunization status of the neighbor's dog is up-to- date. If these records are not found you do need to receive the vaccine for rabies. Your tetanus immunization is up-to-date at this time. 2. May apply bacitracin for the first 1-2 days. Then please keep the wound clean and dry. Monitor for signs of infection. Augmentin has been prescribed, 1 tab twice daily 7 days. 3. Please use Tylenol and/or ibuprofen as needed for pain management. 4. Follow-up with your primary caregiver in the next 1-2 days. Return to the ED as needed and as discussed.
[2017-08-11] MEDS ORDERED: Bacitracin Oint 1 GM U/D Packet TOP ONE (18:50)
[2017-08-11 19:01] VITALS: BP 115/72
== END 2017-08-11 18:58 | disposition home or self-care (01) ==
LOC: MW.ED 18:16
DX: S81.052A Open bite, left knee, initial encounter (principal); S80.212A Abrasion, left knee, initial encounter; W54.0XXA Bitten by dog, initial encounter
CPT/HCPCS: 99283

== ENCOUNTER 2017-10-14 12:24 | Emergency (ER) | payer OTHER, BC ==
[2017-10-14] MEDS ORDERED: Ondansetron 4 MG/2 ML SDV IVPUSH ONE (12:54)
[2017-10-14] MEDS ORDERED: Sodium Chloride 0.9% 500 ML IV SCH ×2 (13:00→15:15)
--- NOTE | 2017-10-14 13:04 | EDM.PDOC ---
ED HPI GENERAL MEDICAL PROBLEM - General Chief Complaint: Gastrointestinal Problem Stated Complaint: FLU LIKE SYMPTOMS Time Seen by Provider: 10/14/17 12:45 Source of Information: Reports: Patient History Limitations: Reports: No Limitations - History of Present Illness INITIAL COMMENTS - FREE TEXT/NARRATIVE: HISTORY AND PHYSICAL: History of present illness: [Patient comes to the emergency room complaining of nausea vomiting and diarrhea that woke her up at 7 AM this morning. She was feeling well last night. No fever or chills. She's had 3 episodes of vomiting and approximately 12 episodes of loose watery stools since 7 AM. Took one dose of Zofran 4 mg around 9 AM which had no improvement of her symptoms. Has been unable to tolerate oral fluids. She has otherwise recently been well. No chest pain shortness of breath or difficulty breathing. No cough or flulike symptoms. No recent infections. No body aches. She is urinating well.] Review of systems: As per history of present illness and below otherwise all systems reviewed and negative. Past medical history: As per history of present illness and as reviewed below otherwise noncontributory. Surgical history: As per history of present illness and as reviewed below otherwise noncontributory. Social history: No reported history of drug or alcohol abuse. Family history: As per history of present illness and as reviewed below otherwise noncontributory. Physical exam: HEENT: Atraumatic, normocephalic. Oral mucous membranes are pink and dry. Throat is clear. Neck supple, no lymphadenopathy. Lungs: Clear to auscultation, breath sounds equal bilaterally. No wheezing crackles or rales. Heart: S1S2, regular rate and rhythm. Abdomen: Bowel sounds are normoactive throughout abdomen. Soft, nondistended, nontender. Negative for masses guarding or rebound. Negative for costovertebral tenderness. Pelvis: Stable nontender. Genitourinary: Deferred. Rectal: Deferred. Extremities: Atraumatic, no swelling or cyanosis to feet or lower legs.. Neurovascular unremarkable. Neuro: Awake, alert, oriented. Motor and sensory unremarkable throughout. Exam nonfocal. Therapeutics: [500 mL's normal saline 4, Zofran 4 mg IV] Impression: [nausea and vomiting] Plan: [Cussed with patient that her symptoms are viral in nature. She states that she is feeling significantly improved following 2 L of normal saline and Zofran. She would like to be discharged home. Strict return precautions are reviewed as well as precautions she can take to reduce them spreading germs to other family members. She verbalized understanding of today's discussion and its and agreement with today's plan. Zofran ODT 4mg (#20) si SL q 8 hours prn nausea 0 RF's. ] Definitive disposition and diagnosis as appropriate pending reevaluation and review of above. Abdominal Pain Score (Numeric/FACES): 3 - Related Data Allergies Allergy/AdvReac Type Severity Reaction Status Date / Time No Known Allergies Allergy Verified 10/14/17 12:40 Home Meds: Home Meds Docosahexanoic Acid [ Dha] 200 mg PO DAILY 12/27/16 [History] Past Medical History - Past Health History Medical/Surgical History: Denies Medical/Surgical History HEENT History: Reports: None Cardiovascular History: Reports: None Other Cardiovascular History: Pulmonary Embolism Respiratory History: Reports: None Other Respiratory History: Pulmonary Embolism Gastrointestinal History: Reports: Irritable Bowel Syndrome Genitourinary History: Reports: None [employer] History: Reports: Musculoskeletal History: Reports: None Neurological History: Reports: None Psychiatric History: Reports: Anxiety Endocrine/Metabolic History: Reports: None Hematologic History: Reports: None Immunologic History: Reports: None Oncologic (Cancer) History: Reports: None Dermatologic History: Reports: None - Infectious Disease History Infectious Disease History: Reports: Chicken Pox - Past Surgical History Head Surgeries/Procedures: Reports: None HEENT Surgical History: Reports: Oral Surgery Female Surgical History: Reports: Section Social & Family History - Family History Family Medical History: Noncontributory Cardiac: Reports: Heart Failure, Hypertension, [place] Neurological: Reports: Dementia Oncologic: Reports: Colon, Esophageal - Tobacco Use Smoking Status *Q: Never Smoker Second Hand Smoke Exposure: No - Caffeine Use Caffeine Use: Reports: Coffee, Soda Caffeine Use Comment: 1cup/day - Recreational Drug Use Recreational Drug Use: No ED ROS GENERAL - Review of Systems Review Of Systems: ROS reveals no pertinent complaints other than HPI. ED EXAM, GI/ABD - Physical Exam Exam: See Below Course - Vital Signs Last Recorded V/S: Last Vital Signs Temp 97.9 F 10/14/17 12:40 Pulse 87 10/14/17 16:55 Resp 18 10/14/17 16:55 BP 105/62 02/14/18 16:55 Pulse Ox 95 10/14/17 16:55 - Orders/Labs/Meds Meds: Medications Discontinued Medications Generic Name Dose Route Start Last Admin Trade Name Carla PRN Reason Stop Dose Admin Sodium Chloride 500 mls @ 999 mls/hr 10/14/17 13:00 Normal Saline IV STAT NEELA Sodium Chloride 500 mls @ 999 mls/hr 10/14/17 15:15 Normal Saline IV STAT NEELA Sodium Chloride 1,000 mls @ 999 mls/hr 10/14/17 15:23 10/14/17 15:29 Normal Saline IV 10/14/17 16:23 999 mls/hr STAT ONE Administration Ketorolac Tromethamine 30 mg 10/14/17 14:02 10/14/17 14:10 Toradol IVPUSH 10/14/17 14:03 30 mg ONETIME ONE Administration Ondansetron HCl 4 mg 10/14/17 12:54 10/14/17 14:05 Zofran IVPUSH 10/14/17 12:55 4 mg ONETIME ONE Administration Sodium Chloride 1,000 ml 10/14/17 13:21 10/14/17 14:05 Normal Saline IV 10/14/17 13:22 1,000 ml STAT ONE Administration Departure - Departure Time of Disposition: 14:30 Disposition: Home, Self-Care 01 Condition: Good Clinical Impression: Nausea & vomiting, Headache - Discharge Information Instructions: General Headache Without Cause, Nausea and Vomiting, Adult Referrals: Memo Cross MD [Primary Care Provider] - Forms: ED Department Discharge Additional Instructions: The following information is given to patients seen in the emergency department who are being discharged to home. This information is to outline your options for follow-up care. We provide all patients seen in our emergency department with a follow-up referral. The need for follow-up, as well as the timing and circumstances, are variable depending upon the specifics of your emergency department visit. If you don't have a primary care physician on staff, we will provide you with a referral. We always advise you to contact your personal physician following an emergency department visit to inform them of the circumstance of the visit and for follow-up with them and/or the need for any referrals to a consulting specialist. The emergency department will also refer you to a specialist when appropriate. This referral assures that you have the opportunity for follow-up care with a specialist. All of these measure are taken in an effort to provide you with optimal care, which includes your follow-up. Under all circumstances we always encourage you to contact your private physician who remains a resource for coordinating your care. When calling for follow-up care, please make the office aware that this follow-up is from your recent emergency room visit. If for any reason you are refused follow-up, please contact the [facility] emergency department at and asked to speak to the emergency department charge nurse. [facility] [address] [place] [id number] Follow-up with your primary care provider at the clinic listed above in 48-72 hours. Push fluids, get plenty of rest, Zofran every 8 hours as needed for nausea. Avoid dairy until diarrhea free for 48 hours. Return to ER as needed as discussed.
[2017-10-14] MEDS ORDERED: Ketorolac 30 MG/ML SDV IVPUSH ONE (14:02)
[2017-10-14] MEDS ORDERED: Sodium Chloride 0.9% 1,000 ML IV ONE (15:23)
[2017-10-14 17:07] VITALS: BP 105/62
== END 2017-10-14 17:00 | disposition home or self-care (01) ==
LOC: MW.ED 12:24
DX: R11.2 Nausea with vomiting, unspecified (principal); R51 Headache; Z79.899 Other long term (current) drug therapy
CPT/HCPCS: 96361; 96374; 96375; 99284; J1885; J2405; J7040

== ENCOUNTER 2018-05-11 10:51 | Emergency (ER) | payer OTHER ==
--- NOTE | 2018-05-11 10:57 | EDM.PDOC ---
ED HPI GENERAL MEDICAL PROBLEM - General Chief Complaint: Gastrointestinal Problem Stated Complaint: NAUSEOUS,HEADACHE Time Seen by Provider: 05/11/18 10:54 Source of Information: Reports: Patient History Limitations: Reports: No Limitations - History of Present Illness INITIAL COMMENTS - FREE TEXT/NARRATIVE: HISTORY AND PHYSICAL: History of present illness: Patient is a 28-year-old female who presents to the emergency room today with complaints of nausea, vomiting or headache and dizziness. She states she has had these symptoms for 2 days. States she has had dizziness with mild blurred vision. Headache is not associated with light or noise sensitivity. Describes the headache as a dull pressure behind her sinus cavity/eyes. She denies any recent injury, trauma or falls. Denies any fever, chills, chest pain, shortness of breath or cough. Denies any abdominal pain, diarrhea, constipation or dysuria. She reports that she has had some generalized abdominal pain since having her daughter 18 months ago. She states she has been seeing Dr. miguel for this. Currently is not having any abdominal pain but does mention she had a pelvic ultrasound yesterday. Past medical history of IBS, anxiety, and PE. OBGYN: Dr Miguel and PCP: Dr Yoder Review of systems: As per history of present illness and below otherwise all systems reviewed and negative. Past medical history: As per history of present illness and as reviewed below otherwise noncontributory. Surgical history: As per history of present illness and as reviewed below otherwise noncontributory. Social history: No reported history of drug or alcohol abuse. Family history: As per history of present illness and as reviewed below otherwise noncontributory. Physical exam: General: Well-developed and well-nourished 28-year-old female. Alert and oriented. HEENT: Atraumatic, normocephalic, pupils equal and reactive bilaterally, negative for conjunctival pallor or scleral icterus, mucous membranes moist, throat clear, neck supple, nontender, trachea midline. No drooling or trismus noted. No meningeal signs Lungs: Clear to auscultation, breath sounds equal bilaterally, chest nontender. Heart: S1S2, regular rate and rhythm without overt murmur Abdomen: Soft, nondistended, nontender. Negative for masses or hepatosplenomegaly. Negative for costovertebral tenderness. Pelvis: Stable nontender. Genitourinary: Deferred. Rectal: Deferred. Skin: Intact, warm, dry. No lesions or rashes noted. Extremities: Atraumatic, negative for cords or calf pain. Neurovascular unremarkable. Neuro: Awake, alert, oriented. Cranial nerves II through XII unremarkable. Cerebellum unremarkable. Motor and sensory unremarkable throughout. Exam nonfocal. Notes: Lab work is unremarkable. Head CT shows no acute findings. Patient states she does feel improved after the IV fluid and medications. Supportive care measures were reviewed and discussed. She voices understanding and is agreeable to plan of care. Denies any further questions or concerns at this time. Diagnostics: CBC, CMP, UA, HCGU, Head CT Therapeutics: IV fluids, Zofran, Toradol, Benadryl, Reglan Prescription: Zofran ODT (#10) Impression: Headache Dizziness Nausea Plan: 1. Please take the remainder of the day to rest. No driving his medications he received in the ER may cause drowsiness. 2. Tylenol and/or ibuprofen as needed for pain management. Zofran has been prescribed for you for nausea. 3. Drink plenty of fluids and small frequent meals throughout the day. 4. Follow-up with your primary caregiver in the next 1-2 days. Return to the ED as needed and as discussed. Definitive disposition and diagnosis as appropriate pending reevaluation and review of above. Head Pain Score (Numeric/FACES): 6 - Related Data Allergies Allergy/AdvReac Type Severity Reaction Status Date / Time No Known Allergies Allergy Verified 10/14/17 12:40 Home Meds: Home Meds Docosahexanoic Acid [ Dha] 200 mg PO DAILY 12/27/16 [History] Past Medical History - Past Health History Medical/Surgical History: Denies Medical/Surgical History HEENT History: Reports: None Cardiovascular History: Reports: None Other Cardiovascular History: Pulmonary Embolism Respiratory History: Reports: None Other Respiratory History: Pulmonary Embolism Gastrointestinal History: Reports: Irritable Bowel Syndrome Genitourinary History: Reports: None [place] [employer] History: Reports: Musculoskeletal History: Reports: None Neurological History: Reports: None Psychiatric History: Reports: Anxiety Endocrine/Metabolic History: Reports: None Hematologic History: Reports: None Immunologic History: Reports: None Oncologic (Cancer) History: Reports: None Dermatologic History: Reports: None - Infectious Disease History Infectious Disease History: Reports: Chicken Pox - Past Surgical History Head Surgeries/Procedures: Reports: None HEENT Surgical History: Reports: Oral Surgery Female Surgical History: Reports: Section Social & Family History - Family History Family Medical History: Noncontributory Cardiac: Reports: Heart Failure, Hypertension, [place] Neurological: Reports: Dementia Oncologic: Reports: Colon, Esophageal - Caffeine Use Caffeine Use: Reports: Coffee, Soda Caffeine Use Comment: 1cup/day ED ROS GENERAL - Review of Systems Review Of Systems: ROS reveals no pertinent complaints other than HPI. ED EXAM, GI/ABD - Physical Exam Exam: See Below (see dictation) Course - Vital Signs Last Recorded V/S: Last Vital Signs Temp 97.8 F 05/11/18 11:25 Pulse 72 05/11/18 11:25 Resp 18 05/11/18 11:25 BP 99/52 L 05/11/18 11:25 Pulse Ox 97 05/11/18 11:25 - Orders/Labs/Meds Labs: Laboratory Tests 05/11/18 05/11/18 05/11/18 Range/Units 11:40 11:40 11:40 WBC 8.45 (4.0-11.0) K/uL RBC 4.45 (4.30-5.90) M/uL Hgb 13.8 (12.0-16.0) g/dL Hct 41.7 (36.0-46.0) % MCV 93.7 (80.0-98.0) fL MCH 31.0 (27.0-32.0) pg MCHC 33.1 (31.0-37.0) g/dL RDW Std Deviation 47.1 (28.0-62.0) fl RDW Coeff of Ceasar 14 (11.0-15.0) % Plt Count 385 (150-400) K/uL MPV 9.60 (7.40-12.00) fL Neut % (Auto) 77.7 (48.0-80.0) % Lymph % (Auto) 16.3 (16.0-40.0) % [place] % (Auto) 5.2 (0.0-15.0) % Eos % (Auto) 0.4 (0.0-7.0) % Baso % (Auto) 0.4 (0.0-1.5) % Neut # (Auto) 6.6 H (1.4-5.7) K/uL Lymph # (Auto) 1.4 (0.6-2.4) K/uL [place] # (Auto) 0.4 (0.0-0.8) K/uL Eos # (Auto) 0.0 (0.0-0.7) K/uL Baso # (Auto) 0.0 (0.0-0.1) K/uL Nucleated RBC % 0.0 /100WBC Nucleated RBCs # 0 K/uL Sodium (136-145) mmol/L Potassium (3.5-5.1) mmol/L Chloride (98-107) mmol/L Carbon Dioxide (21.0-32.0) mmol/L BUN (7.0-18.0) mg/dL Creatinine (0.6-1.0) mg/dL Est Cr Clr Drug Dosing mL/min Estimated GFR (MDRD) ml/min Glucose (74-106) mg/dL Calcium (8.5-10.1) mg/dL Total Bilirubin (0.2-1.0) mg/dL AST (15-37) IU/L ALT (14-63) IU/L Alkaline Phosphatase (46-116) U/L Total Protein (6.4-8.2) g/dL Albumin (3.4-5.0) g/dL Globulin (2.0-3.5) g/dL Albumin/Globulin Ratio (1.3-2.8) Urine Color YELLOW Urine Appearance CLEAR Urine pH 6.5 (5.0-8.0) Ur Specific [place] 1.025 (1.001-1.035) Urine Protein NEGATIVE (NEGATIVE) mg/dL Urine Glucose (UA) NEGATIVE (NEGATIVE) mg/dL Urine Ketones NEGATIVE (NEGATIVE) mg/dL Urine Occult Blood NEGATIVE (NEGATIVE) Urine Nitrite NEGATIVE (NEGATIVE) Urine Bilirubin NEGATIVE (NEGATIVE) Urine Urobilinogen 0.2 (<2.0) EU/dL Ur Leukocyte Esterase NEGATIVE (NEGATIVE) Urine RBC 0-1 (0-2/HPF) Urine WBC 2-4 (0-5/HPF) Ur Epithelial Cells FEW (NONE-FEW) Urine Bacteria FEW (NEGATIVE) Urine HCG, Qual NEGATIVE (NEGATIVE) 05/11/18 Range/Units 11:40 WBC (4.0-11.0) K/uL RBC (4.30-5.90) M/uL Hgb (12.0-16.0) g/dL Hct (36.0-46.0) % MCV (80.0-98.0) fL MCH (27.0-32.0) pg MCHC (31.0-37.0) g/dL RDW Std Deviation (28.0-62.0) fl RDW Coeff of Ceasar (11.0-15.0) % Plt Count (150-400) K/uL MPV (7.40-12.00) fL Neut % (Auto) (48.0-80.0) % Lymph % (Auto) (16.0-40.0) % [place] % (Auto) (0.0-15.0) % Eos % (Auto) (0.0-7.0) % Baso % (Auto) (0.0-1.5) % Neut # (Auto) (1.4-5.7) K/uL Lymph # (Auto) (0.6-2.4) K/uL [place] # (Auto) (0.0-0.8) K/uL Eos # (Auto) (0.0-0.7) K/uL Baso # (Auto) (0.0-0.1) K/uL Nucleated RBC % /100WBC Nucleated RBCs # K/uL Sodium 138 (136-145) mmol/L Potassium 3.8 (3.5-5.1) mmol/L Chloride 104 (98-107) mmol/L Carbon Dioxide 29.1 (21.0-32.0) mmol/L BUN 11 (7.0-18.0) mg/dL Creatinine 0.8 (0.6-1.0) mg/dL Est Cr Clr Drug Dosing 88.79 mL/min Estimated GFR (MDRD) > 60.0 ml/min Glucose 97 (74-106) mg/dL Calcium 8.6 (8.5-10.1) mg/dL Total Bilirubin 0.6 (0.2-1.0) mg/dL AST 14 L (15-37) IU/L ALT 17 (14-63) IU/L Alkaline Phosphatase 46 (46-116) U/L Total Protein 6.9 (6.4-8.2) g/dL Albumin 4.0 (3.4-5.0) g/dL Globulin 2.9 (2.0-3.5) g/dL Albumin/Globulin Ratio 1.4 (1.3-2.8) Urine Color Urine Appearance Urine pH (5.0-8.0) Ur Specific [place] (1.001-1.035) Urine Protein (NEGATIVE) mg/dL Urine Glucose (UA) (NEGATIVE) mg/dL Urine Ketones (NEGATIVE) mg/dL Urine Occult Blood (NEGATIVE) Urine Nitrite (NEGATIVE) Urine Bilirubin (NEGATIVE) Urine Urobilinogen (<2.0) EU/dL Ur Leukocyte Esterase (NEGATIVE) Urine RBC (0-2/HPF) Urine WBC (0-5/HPF) Ur Epithelial Cells (NONE-FEW) Urine Bacteria (NEGATIVE) Urine HCG, Qual (NEGATIVE) Meds: Medications Discontinued Medications Generic Name Dose Route Start Last Admin Trade Name Freq PRN Reason Stop Dose Admin Diphenhydramine HCl 25 mg 05/11/18 11:15 05/11/18 11:40 Benadryl IVPUSH 05/11/18 11:16 25 mg ONETIME ONE Administration Sodium Chloride 1,000 mls @ 999 mls/hr 05/11/18 11:15 05/11/18 11:40 Normal Saline IV 05/11/18 12:15 999 mls/hr STAT ONE Administration Ketorolac Tromethamine 30 mg 05/11/18 11:15 05/11/18 11:40 Toradol IVPUSH 05/11/18 11:16 30 mg ONETIME ONE Administration Metoclopramide HCl 10 mg 05/11/18 11:15 05/11/18 11:40 Reglan IV 05/11/18 11:16 10 mg ONETIME ONE Administration Ondansetron HCl 4 mg 05/11/18 11:15 05/11/18 11:40 Zofran IVPUSH 05/11/18 11:16 4 mg ONETIME ONE Administration Departure - Departure Time of Disposition: 12:58 Disposition: Home, Self-Care 01 Clinical Impression: Dizziness Headache Qualifiers: Headache type: unspecified Headache chronicity pattern: acute headache Intractability: not intractable Qualified Code(s): R51 - Headache Nausea and vomiting Qualifiers: Vomiting type: unspecified Vomiting Intractability: non-intractable Qualified Code(s): R11.2 - Nausea with vomiting, unspecified - Discharge Information Instructions: Nausea and Vomiting, Adult, General Headache Without Cause Referrals: Dick Yoder MD [Primary Care Provider] - Forms: ED Department Discharge Additional Instructions: The following information is given to patients seen in the emergency department who are being discharged to home. This information is to outline your options for follow-up care. We provide all patients seen in our emergency department with a follow-up referral. The need for follow-up, as well as the timing and circumstances, are variable depending upon the specifics of your emergency department visit. If you don't have a primary care physician on staff, we will provide you with a referral. We always advise you to contact your personal physician following an emergency department visit to inform them of the circumstance of the visit and for follow-up with them and/or the need for any referrals to a consulting specialist. The emergency department will also refer you to a specialist when appropriate. This referral assures that you have the opportunity for follow-up care with a specialist. All of these measure are taken in an effort to provide you with optimal care, which includes your follow-up. Under all circumstances we always encourage you to contact your private physician who remains a resource for coordinating your care. When calling for follow-up care, please make the office aware that this follow-up is from your recent emergency room visit. If for any reason you are refused follow-up, please contact the [facility] Emergency Department at and asked to speak to the emergency department charge nurse. [facility] [address] [place] [id number] 1. Please take the remainder of the day to rest. No driving his medications he received in the ER may cause drowsiness. 2. Tylenol and/or ibuprofen as needed for pain management. Zofran has been prescribed for you for nausea. 3. Drink plenty of fluids and small frequent meals throughout the day. 4. Follow-up with Dr Yoder in the next 1-2 days. Return to the ED as needed and as discussed.
[2018-05-11] MEDS ORDERED: diphenhydrAMINE 50 MG/ML SDV IVPUSH ONE (11:15)
[2018-05-11] MEDS ORDERED: Metoclopramide 10 MG/2 ML SDV IV ONE (11:15)
[2018-05-11] MEDS ORDERED: Sodium Chloride 0.9% 1,000 ML IV ONE (11:15)
[2018-05-11] MEDS ORDERED: Ketorolac 30 MG/ML SDV IVPUSH ONE (11:15)
[2018-05-11] MEDS ORDERED: Ondansetron 4 MG/2 ML SDV IVPUSH ONE (11:15)
[2018-05-11 12:30] LABS: CHLORIDE,CL 104 mmol/L (98-107); SODIUM,NA 138 mmol/L (136-145)
--- NOTE | 2018-05-11 12:54 | CT ---
EXAMINATION: Non contrast CT head. Coronal and sagittal reformats. HISTORY: Pain FINDINGS: No evidence of intra or extra axial hemorrhage, mass, midline shift, hydrocephalus or edema. No hypoattenuation changes in the major vascular territories to suggest acute infarct. No abnormal intracranial calcifications are detected. No evidence of substantial vascular calcificat ions. Paranasal sinuses and mastoid air cells are well aerated without substantial findings. Orbits and gl obes are symmetric. Pituitary fossa appears unremarkable. Calvarium is intact. No evidence of skull fracture. IMPRESSION: No acute intracranial findings.
[2018-05-11 13:24] VITALS: BP 94/60
== END 2018-05-11 13:19 | disposition home or self-care (01) ==
LOC: MW.ED 10:51
DX: R42 Dizziness and giddiness (principal); R11.2 Nausea with vomiting, unspecified; R51 Headache; Z79.899 Other long term (current) drug therapy
CPT/HCPCS: 36415; 70450; 80053; 81001; 81025; 85025; 96361; 96374; 96375; 99284; J1200; J1885; J2405; J2765; J7040